=== PATIENT | female | born 1985 | race Two or more races ===

== ENCOUNTER 2021-01-10 08:46 | Outpatient (REF) | payer OTHER, SELFPAY ==
[2021-01-11 21:12] LABS: C. trachomatis RNA TMA NOT DETECTED (NOT DETECTED); N. gonorrhoeae RNA TMA NOT DETECTED (NOT DETECTED)
[2021-01-16 13:31] LABS: HPV mRNA E6/E7 rflx Not Detected (Not Detected)
== END 2021-01-10 08:47 | disposition home or self-care (01) ==
LOC: HO.LAB 08:46
PROVIDERS: PCP Internal Medicine; Visit Provider Advanced Practice Midwife
DX: Z01.419 Encounter for gynecological examination (general) (routine) without abnormal findings (principal); F17.290 Nicotine dependence, other tobacco product, uncomplicated; Z20.2 Contact with and (suspected) exposure to infections with a predominantly sexual mode of transmission
CPT/HCPCS: 36415; 87210; 87491; 87591; 87624; 88142

== ENCOUNTER 2021-03-23 08:57 | Emergency (ER) | payer OTHER, SELFPAY ==
[2021-03-23 09:05] VITALS: BP 105/60; PULSE 88; RESP 14; TEMP 36.5; O2SAT 97; BMI 22.4
--- NOTE | 2021-03-23 09:20 | ED_ITS ---
HPI - Extremity Problem General Chief complaint: Extremity Injury, Upper Stated complaint: R SHOULDER PAIN Time Seen by Provider: 03/23/21 09:16 Source: patient Mode of arrival: ambulatory Limitations: no limitations History of Present Illness HPI Narrative: Patient is a 35-year-old female with no significant past medical history who was moving a bed frame about a week ago and injured her right shoulder. She has not tried taking any medications to make it feel better nor has she used ice. She states is worse when she lifts it over her head. Denies any redness on her shoulder or fevers. Related Data Home Medications Medication Instructions Recorded Confirmed No Known Home Meds 01/10/21 01/10/21 Allergies Allergy/AdvReac Type Severity Reaction Status Date / Time ibuprofen [IBUPROFEN] Allergy Unknown ITCHING, Verified 01/10/21 08:57 RASH Review of Systems Review of Systems: Yes all other systems are reviewed and are negative [facility] Past Medical History Medical History History of asthma Hx of ovarian cyst Surgical History Tubal ligation status Family History Family History Mother Ovarian cancer HTN (hypertension) Social History Social History Alcohol intake: current Alcohol intake frequency: does not drink Smoking Status: Current some day smoker Tobacco Type: Cigar Cigarettes Per Day: 3 Smoked in Last 30 Days: Yes Use of substances other than those prescribed or required for medical reasons: No Advance Directives: No Advance Directives Information Provided: No Gender identity: female Physical Exam Vital Signs: Vital Signs: Last Vital Signs Temp 97.7 F 03/23/21 09:05 Pulse 88 03/23/21 09:05 Resp 14 03/23/21 09:05 BP 105/60 03/23/21 09:05 Pulse Ox 97 03/23/21 09:05 Body Mass Index 22.4 Const: General: cooperative, healthy appearing, comfortable and no acute distress Nutritional Appearance: average body habitus Orientation/consciousness: patient oriented x3 Eyes: General: appearance normal, both eyes and all related structures Neck: Neck: Yes normal visual inspection, Yes full ROM, Yes trachea midline and Yes supple Resp: Effort & Inspection: normal respiratory effort and able to speak in complete sentences Neuro: General: patient oriented x3 Extrem: Right upper extremity: normal to inspection, full ROM (with pain - shoulder) and elbow/forearm Details: normal to inspection and normal ROM; no edema and joint enlargement noted Discharge Plan Discharge Clinical Impression: Strain of shoulder, right Qualifiers: Encounter type: initial encounter Qualified Code(s): S46.911A - Strain of unspecified muscle, fascia and tendon at shoulder and upper arm level, right arm, initial encounter Patient Disposition: Home, Self-Care Instructions: Shoulder Pain (ED) Additional Instructions: As discussed, because the pain is such a localized area, I would purchase an [id number] lidocaine patch applied to the area, you can change it daily. I would also add some naproxen 500 mg twice a day and do not lift anything over 5 lb for the next 2 weeks. You can apply ice if you find that is helpful. It could take a couple of weeks for to feel better but if the pain does not improve over the next couple of weeks, you can follow-up with your PCP or the orthopedic doctor I have listed below. Prescriptions: No Action No Known Home Meds RF: 0 Referrals: Zak Helms MD [Physician] - 2 weeks (if not better, please see PCP or orthopedic doctor listed above)
== END 2021-03-23 09:41 | disposition home or self-care (01) ==
PROVIDERS: Emergency Provider Emergency Medicine; PCP Internal Medicine
DX: S46.911A Strain of unspecified muscle, fascia and tendon at shoulder and upper arm level, right arm, initial encounter (principal); X50.0XXA Overexertion from strenuous movement or load, initial encounter; Y93.E9 Activity, other interior property and clothing maintenance; Y92.019 Unspecified place in single-family (private) house as the place of occurrence of the external cause; Y99.9 Unspecified external cause status; F17.200 Nicotine dependence, unspecified, uncomplicated
CPT/HCPCS: 99282; 99283

== ENCOUNTER 2021-09-20 18:35 | Emergency (ER) | payer OTHER, SELFPAY ==
--- NOTE | ~2021-09-20 | XR_ITS ---
EXAMINATION: XR CHEST CLINICAL INFORMATION: Chest pain. COMPARISON: 11/02/2015. TECHNIQUE: AP view of the chest was obtained. FINDINGS: No significant abnormality is noted involving the heart, lungs, mediastinum, bony thorax or soft tissues. XR/XR chest 1V IMPRESSION: No acute cardiopulmonary findings.
[2021-09-20 18:41] VITALS: BP 122/69; PULSE 73; RESP 18; TEMP 36.8; O2SAT 100; BMI 22.4
--- NOTE | 2021-09-20 18:44 | ECG_ITS ---
Test Reason : CHEST PAIN Blood Pressure : / mmHG Vent. Rate : 069 BPM Atrial Rate : 069 BPM P-R Int : 130 ms QRS Dur : 072 ms QT Int : 378 ms P-R-T Axes : 000 058 044 degrees QTc Int : 405 ms Normal sinus rhythm with sinus arrhythmia Normal ECG No significant changes seen Referred By: Generic ED Physician Electronically Signed By:BRIA EVERETT MD
[2021-09-20 19:06] LABS: MANUAL DIFF FLAG NO
[2021-09-20 19:07] LABS: Basophils Percent Auto 0.7 % (0-2); Eosinophils Absolute Auto 0.4 X10*3/uL (0.0-0.4); Eosinophils Percent Auto 6.5 % (0-4); Hematocrit 34.4 % (37-47); Hemoglobin 11.9 g/dl (12.0-16.0); Imm Gran Abs Auto 0.01 X10*3/uL (0.00-0.03); Imm Gran Pct Auto 0.2 % (0.0-0.4); Lymphocytes Absolute Auto 1.8 X10*3/uL (1.2-4.9); Lymphocytes Percent Auto 34.1 % (20-40); Mean Corpuscular HGB Conc 34.6 g/dl (31.0-35.0); Mean Corpuscular Hemoglobin 30.6 pg (27.0-33.0); Mean Corpuscular Volume 88.4 fL (80-98); Mean Platelet Volume 9.7 fL (9.4-12.3); Monocytes Absolute Auto 0.6 X10*3/uL (0.1-1.2); Neutrophils Absolute Auto 2.5 X10*3/uL (2.0-8.3); Neutrophils Percent Auto 47.5 % (45-73); Platelet Count 263 X10*3/uL (160-400); Red Blood Count 3.89 X10*6/uL (4.20-5.50); Red Cell Distribution Width 12.6 % (11.0-16.0); White Blood Count 5.4 X10*3/uL (4.8-10.8)
[2021-09-20 19:20] LABS: Anion Gap 12 (12-20); Blood Urea Nitrogen 9 mg/dL (9-16); Calcium 8.7 mg/dL (8.4-10.2); Carbon Dioxide 21 mmol/L (22-29); Chloride 108 mmol/L (96-108); Creatinine Clr Calc Pharmacy 102.3; Estimated Glomerular Filt Rate > 60; Glucose Random 85 mg/dL (60-115); Potassium 3.4 mmol/L (3.3-5.1); Sodium 138 mmol/L (135-145)
--- NOTE | 2021-09-20 19:24 | ED_ITS ---
HPI - Chest Pain General Chief Complaint: Chest Pain Stated Complaint: Chest wall pain Time Seen by Provider: 09/20/21 19:24 Source: patient Mode of arrival: ambulatory History of Present Illness HPI narrative: 35-year-old female with past medical history of asthma, cigarette smoker, presenting to the ED complaining of substernal chest pain/pressure worse with deep inspiration/movement x 3-4 days. Denies SOB, LE edema/calf pain, recent travel, history of blood clots, fever, chills, cough, abdominal pain, nausea/vomiting MD complaint: chest heaviness Related Data Previous Rx's Medication Instructions Recorded acetaminophen 500 mg tablet 500 mg PO Q6H PRN #20 tab 09/20/21 (Tylenol Extra Strength) lidocaine 5 % topical patch 1 patch TOPICAL DAILY PRN #30 ea 09/20/21 (Lidoderm) MDD remove after 12 hours Allergies Allergy/AdvReac Type Severity Reaction Status Date / Time ibuprofen [IBUPROFEN] Allergy Unknown ITCHING, Verified 09/20/21 18:41 RASH Review of Systems Review of Systems: Constitutional: No Fever, No Chills, No Fatigue, No Malaise ENT/Mouth: No Ear Pain, No Nasal Congestion, No Sinus Pain, No sore throat, No Rhinorrhea, No Swallowing Difficulty Eyes: No Eye Pain, No Swelling, No Redness, No Discharge Cardiovascular: + Chest Pain, No SOB, No Dyspnea on Exertion, No Orthopnea, No Edema, No Palpitations Respiratory: No Cough, No Dyspnea Gastrointestinal: No Nausea, No Vomiting, No Diarrhea, No Constipation, No Abdominal pain Genitourinary: No Dysuria, No Urinary Frequency, No Hematuria,No Flank Pain Musculoskeletal: No joint pain, No Myalgias, No Joint Swelling Skin: No Skin Lesions, No rash Neuro: No Weakness, No Loss of Consciousness, No Dizziness, No Headache Yes all other systems are reviewed and are negative [facility] Past Medical History Attestation statement: The following information was validated with the patient. Medical History History of asthma Hx of ovarian cyst Surgical History Tubal ligation status Family History Family History Mother Ovarian cancer HTN (hypertension) Social History Social History Alcohol intake: never Patient Tobacco Use Status: Current everyday Tobacco user Cigarettes Per Day: 3 Use of substances other than those prescribed or required for medical reasons: Yes Substance Use Type: Marijuana Advance Directives: No Advance Directives Information Provided: Yes Patient : No Gender identity: Female Physical Exam Vital Signs: Vital Signs: Last Vital Signs Temp 99.0 F 09/20/21 19:42 Pulse 63 09/20/21 19:42 Resp 20 09/20/21 19:42 BP 106/69 09/20/21 19:42 Pulse Ox 99 09/20/21 19:42 Body Mass Index 22.4 Const: General: cooperative, healthy appearing and no acute distress Orientation/consciousness: patient oriented x3 Limitations: no limitations HENMT: Head: Yes normal to inspection Ears: hearing grossly normal bilaterally General nose exam: Normal external nose present Face and sinus: Yes normal facial exam Eyes: General: appearance normal, both eyes and all related structures EOM: EOMs intact bilaterally Neck: Neck: Yes normal visual inspection and Yes no meningeal signs Chest: Chest palpation & inspection: no crepitus and tenderness sternum (Reproducing subjective complaint) Resp: Effort & Inspection: normal respiratory effort Auscultation: clear to auscultation bilaterally, no rales, no rhonchi and no wheezes Cardio: Rate: regular rate Heart sounds: S1 normal heart sound present and S2 normal heart sound present GI: Inspection: Yes normal to inspection Palpation (GI): Soft to palpation, nontender, no guarding and not rigid Skin: Rashes: no rashes Wounds: no wounds Neuro: General: patient oriented x3 and no meningeal signs Gait exam (Neuro): Normal gait present Extrem: General: Yes normal to inspection, Yes no pedal edema and Yes no calf tenderness Course Course Course Narrative: -1928--no leukocytosis. Troponin negative. -2008--D-dimer negative, labs otherwise unremarkable XR chest 1V IMPRESSION: No acute cardiopulmonary findings. >> results discussed with patient including worrisome signs and symptoms and strict return precautions. She verbalized understanding feel safe for discharge home to follow-up with PCP MDM - Chest Pain MDM Narrative Medical decision making narrative: 35-year-old female with past medical history of asthma, cigarette smoker, presenting to the ED complaining of substernal chest pain/pressure worse with deep inspiration/movement x 3-4 days. On exam vital signs stable, NAD, nontoxic appearing, chest pain reproducible on exam, lungs CTA, no pedal edema/calf tenderness. Concern for costochondritis vs PE patient with risk factor of cigarette smoking/pleuritic chest pain vs atypical ACS. Rule out pneumonia. Plan: EKG, labs, CXR, re-evaluate Medical Records Data Attestation: I reviewed the patient's medical records. Lab Data Attestation: I reviewed the patient's lab results. Result diagrams: 09/20/21 19:00 09/20/21 19:00 Labs: Lab Results 09/20/21 09/20/21 09/20/21 Range/Units 19:00 19:00 19:00 WBC 5.4 (4.8-10.8) X10*3/uL RBC 3.89 L (4.20-5.50) X10*6/uL Hgb 11.9 L (12.0-16.0) g/dl Hct 34.4 L (37-47) % MCV 88.4 (80-98) fL MCH 30.6 (27.0-33.0) pg MCHC 34.6 (31.0-35.0) g/dl RDW 12.6 (11.0-16.0) % Plt Count 263 (160-400) X10*3/uL MPV 9.7 (9.4-12.3) fL Immature Gran % (Auto) 0.2 (0.0-0.4) % Neut % (Auto) 47.5 (45-73) % Lymph % (Auto) 34.1 (20-40) % [place] % (Auto) 11.0 (2-11) % Eos % (Auto) 6.5 H (0-4) % Baso % (Auto) 0.7 (0-2) % Lymph # (Auto) 1.8 (1.2-4.9) X10*3/uL [place] # (Auto) 0.6 (0.1-1.2) X10*3/uL Eos # (Auto) 0.4 (0.0-0.4) X10*3/uL Baso # (Auto) 0.0 (0.0-0.2) X10*3/uL Abs Immat Gran (auto) 0.01 (0.00-0.03) X10*3/uL Absolute Neuts (auto) 2.5 (2.0-8.3) X10*3/uL Absolute Nucleated RBC 0.000 (0.0-0.012) X10*3/uL Nucleated RBC % (auto) 0.0 (0.0-0.2) /100WBC D-Dimer NG/ML Sodium 138 (135-145) mmol/L Potassium 3.4 (3.3-5.1) mmol/L Chloride 108 (96-108) mmol/L Carbon Dioxide 21 L (22-29) mmol/L Anion Gap 12 (12-20) BUN 9 (9-16) mg/dL Creatinine 0.69 (0.5-1.4) mg/dL Estim Creat Clear Calc 102.3 Estimated GFR > 60 Random Glucose 85 (60-115) mg/dL Calcium 8.7 (8.4-10.2) mg/dL Troponin I High Sens < 3.5 (<3.5-17.0) ng/L 09/20/21 Range/Units 19:51 WBC (4.8-10.8) X10*3/uL RBC (4.20-5.50) X10*6/uL Hgb (12.0-16.0) g/dl Hct (37-47) % MCV (80-98) fL MCH (27.0-33.0) pg MCHC (31.0-35.0) g/dl RDW (11.0-16.0) % Plt Count (160-400) X10*3/uL MPV (9.4-12.3) fL Immature Gran % (Auto) (0.0-0.4) % Neut % (Auto) (45-73) % Lymph % (Auto) (20-40) % [place] % (Auto) (2-11) % Eos % (Auto) (0-4) % Baso % (Auto) (0-2) % Lymph # (Auto) (1.2-4.9) X10*3/uL [place] # (Auto) (0.1-1.2) X10*3/uL Eos # (Auto) (0.0-0.4) X10*3/uL Baso # (Auto) (0.0-0.2) X10*3/uL Abs Immat Gran (auto) (0.00-0.03) X10*3/uL Absolute Neuts (auto) (2.0-8.3) X10*3/uL Absolute Nucleated RBC (0.0-0.012) X10*3/uL Nucleated RBC % (auto) (0.0-0.2) /100WBC D-Dimer 202 NG/ML Sodium (135-145) mmol/L Potassium (3.3-5.1) mmol/L Chloride (96-108) mmol/L Carbon Dioxide (22-29) mmol/L Anion Gap (12-20) BUN (9-16) mg/dL Creatinine (0.5-1.4) mg/dL Estim Creat Clear Calc Estimated GFR Random Glucose (60-115) mg/dL Calcium (8.4-10.2) mg/dL Troponin I High Sens (<3.5-17.0) ng/L ECG Data ECG #1: ECG interpretation date: 09/20/21 ECG interpretation time: 18:54 Interpretation: EKG normal sinus rhythm at a rate of 69 OK interval 139 QRS 72 QTC 405 No STEMI/nonischemic Discharge Plan Discharge Clinical Impression: Acute costochondritis Patient Disposition: Home, Self-Care Instructions: Costochondritis (ED) Additional Instructions: Your blood work and chest x-ray were reassuring today in the ED Please follow-up with her primary care doctor Apply heat to area Rest Take Tylenol as needed for pain, Lidoderm patches additionally help for pain If symptoms persist or worsen/become unbearable or you have shortness of breath or fever return to the ED Prescriptions: New acetaminophen [Tylenol Extra Strength] 500 mg tablet 500 mg PO Q6H PRN (Reason: pain or fever) Qty: 20 RF: 0 lidocaine [Lidoderm] 5 % adhesive patch,medicated 1 patch topical DAILY MDD remove after 12 hours PRN (Reason: pain) Qty: 30 RF: 0 Referrals: Kimberly Parekh MD [Primary Care Provider] - 5 days
[2021-09-20 19:26] LABS: Troponin-I High Sensitivity < 3.5 ng/L (<3.5-17.0)
[2021-09-20 19:42] VITALS: BP 106/69; PULSE 63; RESP 20; TEMP 37.2; O2SAT 99
--- NOTE | 2021-09-20 19:43 | PC.NURSE ---
PATIENT WAS HOOKED UP TO FRONT COUNTER CLERK AND VITALS WERE TAKEN .
[2021-09-20] MEDS: Acetaminophen 325 MG TABLET 650 MG PO (19:51)
[2021-09-20 20:05] LABS: D Dimer 202 NG/ML
== END 2021-09-20 20:26 | disposition home or self-care (01) ==
PROVIDERS: Physician Assistant; Emergency Provider Internal Medicine; PCP Internal Medicine
DX: M94.0 Chondrocostal junction syndrome [Tietze] (principal); F17.200 Nicotine dependence, unspecified, uncomplicated
CPT/HCPCS: 36415; 71045; 80048; 84484; 85025; 85379; 93005; 99284

== ENCOUNTER 2021-09-22 02:32 | Emergency (ER) | payer OTHER, SELFPAY ==
--- NOTE | 2021-09-22 | ECG_ITS ---
Test Reason : CHEST PAIN Blood Pressure : / mmHG Vent. Rate : 067 BPM Atrial Rate : 067 BPM P-R Int : 146 ms QRS Dur : 070 ms QT Int : 376 ms P-R-T Axes : 047 063 054 degrees QTc Int : 397 ms Normal sinus rhythm Nonspecific T wave abnormality Abnormal ECG No significant changes seen Referred By: Generic ED Physician Electronically Signed By:BRIA EVERETT MD
--- NOTE | ~2021-09-22 | XR_ITS ---
EXAMINATION: XR CHEST CLINICAL INFORMATION: Right rib pain COMPARISON: 09/20/2021 TECHNIQUE: 2 views of the chest were obtained. FINDINGS: The lungs are clear with no focal consolidation. No evidence of pneumothorax, pulmonary edema, or pleural effusions. The cardiomediastinal silhouette is unremarkable. No acute osseous findings. XR/XR chest 2V IMPRESSION: No acute cardiopulmonary findings.
--- NOTE | ~2021-09-22 | CT_ITS ---
EXAMINATION: CT ABDOMEN AND PELVIS WITHOUT CONTRAST CLINICAL INFORMATION: Right flank pain COMPARISON: Previous CT of the abdomen and pelvis June 2020 TECHNIQUE: Multidetector volumetric imaging was performed from the superior aspect of the liver through the pubic symphysis. Sagittal and coronal reformatted images were obtained on the technologist's workstation. This CT examination was performed using dose optimization techniques as appropriate, variously including the following: *Automated exposure control *Adjustment of mA and/or kV according to patient size (this includes techniques or standardized protocols for targeted exams where dose is matched to indication/reason for exam; i.e. extremities or head) *Use of iterative reconstruction technique DLP: 434 mGy-cm FINDINGS: LUNG BASES: The visualized lung bases are unremarkable. LIVER, GALLBLADDER, AND BILIARY TREE: The liver is normal in size, shape, and attenuation. No focal hepatic lesion or biliary ductal dilatation is present. The gallbladder is unremarkable with no evidence of radiopaque gallstones, gallbladder wall thickening, or obvious pericholecystic inflammatory changes. PANCREAS: Unremarkable. SPLEEN: Unremarkable. ADRENAL GLANDS: Unremarkable. KIDNEYS AND URETERS: The kidneys are normal in size, shape, and attenuation. No hydronephrosis, hydroureter, or calculi seen. No perinephric stranding. BLADDER: Unremarkable. GASTROINTESTINAL TRACT: The small and large bowel are unremarkable. The appendix is not identified. There are no inflammatory changes seen in the right lower quadrant. ABDOMINAL WALL: No significant hernia is appreciated. LYMPH NODES: Normal. VASCULAR: Unremarkable. PELVIC VISCERA: Unremarkable. OSSEOUS STRUCTURES: Unremarkable. CT/CT abdomen pelvis wo con IMPRESSION: Unremarkable exam
[2021-09-22 03:01] VITALS: BP 121/76; PULSE 75; RESP 20; TEMP 36.7; O2SAT 99; BMI 24.1
--- NOTE | 2021-09-22 05:27 | PC.NURSE ---
Pt and visitor at bedside endorsing frustration re: wait time. This RN offered to discuss PRN pain meds w/ MD while pt awaiting eval. Pt amicable but states that when seen the other day for these same complaints she was given tylenol and lidocaine patches w/o relief. Information relayed to MD Obrien
[2021-09-22 06:00] VITALS: BP 93/35; PULSE 56; RESP 16; TEMP 37.1; O2SAT 98
[2021-09-22] MEDS: HYDROcodone Bit/Acetam 5/325 TABLET 1 TAB PO (06:41)
[2021-09-22] MEDS: Ondansetron ODT 4 MG TAB.RAPDIS TRANSLINGU (06:41)
[2021-09-22] MEDS: Cyclobenzaprine HCl 10 MG TABLET PO (06:41)
--- NOTE | 2021-09-22 06:42 | ED.ABDPAIN ---
HPI - Abdominal Pain General Chief Complaint: General Medical Stated Complaint: rib pain Time Seen by Provider: 09/22/21 06:30 Source: patient and old records reviewed Mode of arrival: ambulatory Limitations: no limitations History of Present Illness MD elicited complaint: flank pain Pertinent past history: none Onset (ago): day(s) (3) Pain Consistency: constant Location: R flank Severity: severe Quality: stabbing Radiation: none Migration to: no migration Exacerbating factors: movement Relieving factors: nothing Treatments prior to arrival: other Related Data Previous Rx's Medication Instructions Recorded acetaminophen 500 mg tablet 500 mg PO Q6H PRN #20 tab 09/20/21 (Tylenol Extra Strength) lidocaine 5 % topical patch 1 patch TOPICAL DAILY PRN #30 ea 09/20/21 (Lidoderm) MDD remove after 12 hours diazepam 5 mg tablet (Valium) 5 mg PO TID PRN #10 tab 09/22/21 lidocaine 4 % topical patch 1 patch TOPICAL DAILY PRN #10 ea 09/22/21 Allergies Allergy/AdvReac Type Severity Reaction Status Date / Time ibuprofen [IBUPROFEN] Allergy Unknown ITCHING, Verified 09/20/21 18:41 RASH Review of Systems Review of Systems Constitutional : No Weight loss, No Fever, No Chills, ENT/Mouth : No Hearing loss, No Ear Pain, No Nasal Congestion, No Sinus Pain, No Hoarseness, No sore throat, No Rhinorrhea, No Swallowing Difficulty Cardiovascular : No Chest Pain, No SOB Respiratory : No Cough, No Dyspnea Gastrointestinal : No Nausea, No Vomiting, No Diarrhea, No abdominal Pain, No Hematochezia, No Melena Genitourinary : No Dysuria, No Urinary Frequency, No Hematuria, No Urinary Incontinence, Musculoskeletal : positive back pain, pos chest wall pain Skin : No Skin Lesions, No rash Neuro : No Weakness, No Numbness, No Paresthesias, no loss of bowel or bladder incontinence, no saddle anesthesia All other systems reviewed and are negative Physical Exam Vital Signs: Vital Signs: Last Vital Signs Temp 98.7 F 09/22/21 06:00 Pulse 56 09/22/21 06:00 Resp 16 09/22/21 06:00 BP 111/73 09/22/21 06:43 Pulse Ox 98 09/22/21 06:00 Body Mass Index 24.1 Appearance: Alert. Oriented X3. No acute distress. Eyes: Pupils equal, round and reactive to light. ENT: Pharynx normal. Neck: Normal inspection. Neck supple. CVS: Normal heart rate and rhythm. Pulses normal. Respiratory: No respiratory distress. Breath sounds normal. Abdomen: Soft and ttp in R mid abdomen area Back: moderate R flank ttp Skin: Skin warm and dry. Normal skin color. Normal skin turgor. Extremities: No lower extremity edema. No calf ttp Neuro: Oriented X 3. No motor deficit. No sensory deficit. Course Course Course Narrative: negative workup stable for DC MDM - Abdominal Pain MDM Narrative Medical decision making narrative: 35 yo female here with R flank pain for 3 days possibly MSK seems worse with movement but will need renal colic workup as well. Just seen for chest pain 2 days ago ruled out with ddimer and troponin - EKG today unchanged, atypical for ACS, PERC negative, her DBP is low on arrival will hydrate. Labs, UA, CT scan for renal colic. Dispo per results and findings. Lab Data Result diagrams: 09/22/21 06:46 09/22/21 06:46 Labs: Lab Results 09/22/21 09/22/21 09/22/21 Range/Units 06:46 06:46 06:46 WBC 5.5 (4.8-10.8) X10*3/uL RBC 3.99 L (4.20-5.50) X10*6/uL Hgb 12.2 (12.0-16.0) g/dl Hct 35.5 L (37-47) % MCV 89.0 (80-98) fL MCH 30.6 (27.0-33.0) pg MCHC 34.4 (31.0-35.0) g/dl RDW 12.5 (11.0-16.0) % Plt Count 295 (160-400) X10*3/uL MPV 9.9 (9.4-12.3) fL Immature Gran % (Auto) 0.2 (0.0-0.4) % Neut % (Auto) 58.3 (45-73) % Lymph % (Auto) 24.5 (20-40) % [place] % (Auto) 10.6 (2-11) % Eos % (Auto) 5.7 H (0-4) % Baso % (Auto) 0.7 (0-2) % Lymph # (Auto) 1.3 (1.2-4.9) X10*3/uL [place] # (Auto) 0.6 (0.1-1.2) X10*3/uL Eos # (Auto) 0.3 (0.0-0.4) X10*3/uL Baso # (Auto) 0.0 (0.0-0.2) X10*3/uL Abs Immat Gran (auto) 0.01 (0.00-0.03) X10*3/uL Absolute Neuts (auto) 3.2 (2.0-8.3) X10*3/uL Absolute Nucleated RBC 0.000 (0.0-0.012) X10*3/uL Nucleated RBC % (auto) 0.0 (0.0-0.2) /100WBC Sodium 138 (135-145) mmol/L Potassium 3.7 (3.3-5.1) mmol/L Chloride 106 (96-108) mmol/L Carbon Dioxide 24 (22-29) mmol/L Anion Gap 12 (12-20) BUN 12 (9-16) mg/dL Creatinine 0.72 (0.5-1.4) mg/dL Estim Creat Clear Calc 98.1 Estimated GFR > 60 Random Glucose 106 (60-115) mg/dL Calcium 8.9 (8.4-10.2) mg/dL Total Bilirubin 0.3 (0.0-1.0) mg/dL Direct Bilirubin < 0.2 (0.0-0.5) mg/dL AST 11 (5-31) U/L ALT 9 (0-31) U/L Alkaline Phosphatase 46 (39-117) U/L Total Protein 6.9 (6.5-8.0) g/dL Albumin 4.2 (3.5-5.0) g/dL Lipase 16 (8-78) U/L Urine Color Urine Appearance Urine pH (5.0-8.0) Ur Specific [place] (1.005-1.025) Urine Protein (NEG-TRACE) MG/DL Urine Glucose (UA) (NEG) MG/DL Urine Ketones (NEG) MG/DL Urine Blood (NEG) Urine Nitrite (NEG) Ur Leukocyte Esterase (NEG) Urine RBC (0) /HPF Urine WBC (0-4) /HPF Ur Squamous Epith Cells /LPF Urine Bacteria /LPF Urine Mucus /LPF Urine Test (NEGATIVE) COVID-19 (FABRICIO) Negative (Negative) COVID-19 Clin Com See Note 09/22/21 09/22/21 Range/Units 07:51 07:51 WBC (4.8-10.8) X10*3/uL RBC (4.20-5.50) X10*6/uL Hgb (12.0-16.0) g/dl Hct (37-47) % MCV (80-98) fL MCH (27.0-33.0) pg MCHC (31.0-35.0) g/dl RDW (11.0-16.0) % Plt Count (160-400) X10*3/uL MPV (9.4-12.3) fL Immature Gran % (Auto) (0.0-0.4) % Neut % (Auto) (45-73) % Lymph % (Auto) (20-40) % [place] % (Auto) (2-11) % Eos % (Auto) (0-4) % Baso % (Auto) (0-2) % Lymph # (Auto) (1.2-4.9) X10*3/uL [place] # (Auto) (0.1-1.2) X10*3/uL Eos # (Auto) (0.0-0.4) X10*3/uL Baso # (Auto) (0.0-0.2) X10*3/uL Abs Immat Gran (auto) (0.00-0.03) X10*3/uL Absolute Neuts (auto) (2.0-8.3) X10*3/uL Absolute Nucleated RBC (0.0-0.012) X10*3/uL Nucleated RBC % (auto) (0.0-0.2) /100WBC Sodium (135-145) mmol/L Potassium (3.3-5.1) mmol/L Chloride (96-108) mmol/L Carbon Dioxide (22-29) mmol/L Anion Gap (12-20) BUN (9-16) mg/dL Creatinine (0.5-1.4) mg/dL Estim Creat Clear Calc Estimated GFR Random Glucose (60-115) mg/dL Calcium (8.4-10.2) mg/dL Total Bilirubin (0.0-1.0) mg/dL Direct Bilirubin (0.0-0.5) mg/dL AST (5-31) U/L ALT (0-31) U/L Alkaline Phosphatase (39-117) U/L Total Protein (6.5-8.0) g/dL Albumin (3.5-5.0) g/dL Lipase (8-78) U/L Urine Color YELLOW Urine Appearance CLEAR Urine pH 6.0 (5.0-8.0) Ur Specific [place] >= 1.030 H (1.005-1.025) Urine Protein TRACE (NEG-TRACE) MG/DL Urine Glucose (UA) NEG (NEG) MG/DL Urine Ketones NEG (NEG) MG/DL Urine Blood 3+ H (NEG) Urine Nitrite NEG (NEG) Ur Leukocyte Esterase NEG (NEG) Urine RBC 10-14 H (0) /HPF Urine WBC 0 (0-4) /HPF Ur Squamous Epith Cells NONE /LPF Urine Bacteria NONE /LPF Urine Mucus TRACE /LPF Urine Test NEGATIVE (NEGATIVE) COVID-19 (FABRICIO) (Negative) COVID-19 Clin Com ECG Data Attestation: I personally reviewed and interpreted this ECG as follows: ECG interpretation date: 09/22/21 ECG interpretation time: 06:43 Interpretation: Rate: 67 Rhythm: NSR [place]: normal Normal P waves. Normal NATI. Normal QRS complex. ST T wave : no FELA, inverted V1-V2 qTC: normal prior studies: no change from prior The study has been interpreted contemporaneously by me. . Discharge Plan Discharge Clinical Impression: Acute flank pain Patient Disposition: Home, Self-Care Instructions: Flank Pain (ED) Additional Instructions: return to ED for any worsening symptoms or concerns negative CT scan for stone Prescriptions: New lidocaine 4 % adhesive patch,medicated 1 patch topical DAILY PRN (Reason: pain) Qty: 10 RF: 0 diazepam [Valium] 5 mg tablet 5 mg PO TID PRN (Reason: muscle spasm) Qty: 10 RF: 0 No Action acetaminophen [Tylenol Extra Strength] 500 mg tablet 500 mg PO Q6H PRN (Reason: pain or fever) Qty: 20 RF: 0 lidocaine [Lidoderm] 5 % adhesive patch,medicated 1 patch topical DAILY MDD remove after 12 hours PRN (Reason: pain) Qty: 30 RF: 0 Referrals: Po,Loki Valentine MD [Primary Care Provider] - 2 days (if not better) Stand Alone Forms: Work/School Release [facility] Past Medical History Attestation statement: The following information was validated with the patient. Medical History History of asthma Hx of ovarian cyst Surgical History Tubal ligation status Family History Family History Mother Ovarian cancer HTN (hypertension) Social History Social History Alcohol intake: never Patient Tobacco Use Status: Current everyday Tobacco user Cigarettes Per Day: 3 Substance Use Type: Marijuana Advance Directives: No Advance Directives Information Provided: Yes Patient : No Gender identity: Female
[2021-09-22 06:43] VITALS: BP 111/73
[2021-09-22] MEDS: 0.9 % Sodium Chloride 1,000 ML 999 ML IVCONT ×2 (06:52→07:52)
[2021-09-22 07:01] LABS: MANUAL DIFF FLAG NO
[2021-09-22 07:06] LABS: Basophils Percent Auto 0.7 % (0-2); Eosinophils Absolute Auto 0.3 X10*3/uL (0.0-0.4); Eosinophils Percent Auto 5.7 % (0-4); Hematocrit 35.5 % (37-47); Hemoglobin 12.2 g/dl (12.0-16.0); Imm Gran Abs Auto 0.01 X10*3/uL (0.00-0.03); Imm Gran Pct Auto 0.2 % (0.0-0.4); Lymphocytes Absolute Auto 1.3 X10*3/uL (1.2-4.9); Lymphocytes Percent Auto 24.5 % (20-40); Mean Corpuscular HGB Conc 34.4 g/dl (31.0-35.0); Mean Corpuscular Hemoglobin 30.6 pg (27.0-33.0); Mean Platelet Volume 9.9 fL (9.4-12.3); Monocytes Absolute Auto 0.6 X10*3/uL (0.1-1.2); Monocytes Percent Auto 10.6 % (2-11); Neutrophils Absolute Auto 3.2 X10*3/uL (2.0-8.3); Neutrophils Percent Auto 58.3 % (45-73); Platelet Count 295 X10*3/uL (160-400); Red Blood Count 3.99 X10*6/uL (4.20-5.50); Red Cell Distribution Width 12.5 % (11.0-16.0); White Blood Count 5.5 X10*3/uL (4.8-10.8)
[2021-09-22 07:07] LABS: COVID-19 Test Negative (Negative)
[2021-09-22 07:24] LABS: Alanine Aminotransferase 9 U/L (0-31); Albumin Level 4.2 g/dL (3.5-5.0); Alkaline Phosphatase 46 U/L (39-117); Anion Gap 12 (12-20); Aspartate Amino Transferase 11 U/L (5-31); Bilirubin Direct < 0.2 mg/dL (0.0-0.5); Bilirubin Total 0.3 mg/dL (0.0-1.0); Blood Urea Nitrogen 12 mg/dL (9-16); Calcium 8.9 mg/dL (8.4-10.2); Carbon Dioxide 24 mmol/L (22-29); Chloride 106 mmol/L (96-108); Creatinine Clr Calc Pharmacy 98.1; Estimated Glomerular Filt Rate > 60; Glucose Random 106 mg/dL (60-115); Lipase 16 U/L (8-78); Potassium 3.7 mmol/L (3.3-5.1); Sodium 138 mmol/L (135-145); Total Protein 6.9 g/dL (6.5-8.0)
[2021-09-22 07:59] LABS: Appearance Urine CLEAR; Color Urine YELLOW; Glucose Urine UA NEG (NEG); Leukocyte Esterase Urine NEG (NEG); Nitrite Urine NEG (NEG); Specific Gravity - Urine >= 1.030 (1.005-1.025); UACC Culture Trigger NO; Urine Blood 3+ (NEG); Urine Ketones NEG (NEG); Urine Protein TRACE MG/DL (NEG-TRACE)
[2021-09-22 08:00] LABS: UPreg QC Valid YES; Urine Pregnancy NEGATIVE (NEGATIVE)
[2021-09-22 08:23] LABS: Mucus Urine TRACE /LPF; WBC Urine 0 /HPF (0-4)
== END 2021-09-22 09:01 | disposition home or self-care (01) ==
PROVIDERS: Emergency Provider Emergency Medicine; PCP Internal Medicine
DX: R07.81 Pleurodynia (principal); Z79.899 Other long term (current) drug therapy; Z20.822 Contact with and (suspected) exposure to COVID-19
CPT/HCPCS: 36415; 71046; 74176; 80048; 80076; 81001; 81025; 83690; 85025; 87635; 93005; 96360; 99284; 99285

== ENCOUNTER 2021-09-25 12:01 | Emergency (ER) | payer OTHER, SELFPAY ==
[2021-09-25 12:04] VITALS: BP 117/64; PULSE 88; RESP 16; TEMP 37; O2SAT 99; BMI 21.6
--- NOTE | 2021-09-25 12:36 | ED_ITS ---
HPI - General Adult General Chief complaint: General Medical Stated complaint: back, abd , chest pain Time Seen by Provider: 09/25/21 12:17 Source: patient and old records reviewed History of Present Illness HPI narrative: Patient complaining of chest and back pain which started approximately 5 days ago. It initially started his anterior chest pain across her entire chest. She was seen in the emergency department at that time and had cardiac workup in a [facility] which were normal. She is treated for costochondritis with Valium in acetaminophen. She states the pain got worse and eventually radiated to her back and into her abdomen. She was seen here 2 days ago when that happened and had a workup including abdominal CT which was negative for pathology. Her lab work also has been normal. She returns today because the pain is still severe. She states it is sharp and burning across her chest into her back bilaterally. It is equal bilaterally. It also has known her epigastric area for the past 2 days. She has not taken other medications for this. She has not taken nonsteroidal anti-inflammatories or antacids. No history of gastritis. She denies history of this in the past. No recent illness. No cough or shortness of breath. No sputum. No fevers or chills documented. Although she thought she had low-grade fevers over the past 2 days. Pain is much worse with movement. It is also worse when she lays flat. No precipitating factors that she can think of. No recent changes in diet or activity. Related Data Previous Rx's Medication Instructions Recorded acetaminophen 500 mg tablet 500 mg PO Q6H PRN #20 tab 09/20/21 (Tylenol Extra Strength) lidocaine 5 % topical patch 1 patch TOPICAL DAILY PRN #30 ea 09/20/21 (Lidoderm) MDD remove after 12 hours diazepam 5 mg tablet (Valium) 5 mg PO TID PRN #10 tab 09/22/21 lidocaine 4 % topical patch 1 patch TOPICAL DAILY PRN #10 ea 09/22/21 naproxen 500 mg tablet,delayed 500 mg PO BID PRN #20 tab 09/25/21 release (EC-Naprosyn) omeprazole magnesium 20 mg 20 mg PO BID #30 tab 09/25/21 tablet,delayed release (Prilosec OTC) Allergies Allergy/AdvReac Type Severity Reaction Status Date / Time ibuprofen [IBUPROFEN] Allergy Unknown ITCHING, Verified 09/20/21 18:41 RASH Review of Systems Constitutional: Comments: No documented fevers Cardiovascular: Comments: Chest pain as described Respiratory: Comments: No cough or dyspnea Gastrointestinal: Comments: Abdominal pain is described Musculoskeletal: Comments: No leg pain or calf pain Integumentary/Breasts: Comments: No rash Neurologic: Comments: No weakness numbness or paresthesias Psychiatric: Comments: Anxiety over the pain PMFSH Past Medical History Medical History History of asthma Hx of ovarian cyst Surgical History Tubal ligation status Family History Family History Mother Ovarian cancer HTN (hypertension) Social History Social History Alcohol intake: never Patient Tobacco Use Status: Current everyday Tobacco user Cigarettes Per Day: 3 Substance Use Type: Marijuana Advance Directives: No Patient : No Gender identity: Female Physical Exam Vital Signs: Vital Signs: Last Vital Signs Temp 98.6 F 09/25/21 12:04 Pulse 88 09/25/21 12:04 Resp 16 09/25/21 12:04 BP 117/64 09/25/21 12:04 Pulse Ox 99 09/25/21 12:04 Body Mass Index 21.6 Const: Other: Awake and alert. Tearful. HENMT: Other: Normocephalic atraumatic. No JVD. Chest: Other: Tender across the anterior chest which reproduces her symptoms. No focal point tenderness. No crepitus or deformity. Resp: Other: Clear and equal bilaterally without wheezes rales rhonchi. Good air entry. No apparent shortness of breath Cardio: Other: Regular rate rhythm without murmurs rubs or gallops GI: Other: Epigastric tenderness to palpation. No Lujan sign. No lower abdominal tenderness. Abdomen is soft and nondistended Back/Spine/Pelvis: Other: No midline CT or L-spine tenderness. There is bilateral tenderness over the rhomboid and trapezius muscles. Skin: Other: Warm pink and dry without rash Neuro: Other: No focal neurologic deficits. Cranial nerves intact grossly Extrem: Other: No calf tenderness or pedal edema Psych: Other: Anxious and tearful Course Course Course Narrative: Patient with chest and back pain and upper abdominal pain with recent very reassuring workup which is ruled out cardiac etiology, thromboembolic etiology, or significant intra-abdominal pathology or kidney stones. At this point exam as well as history and workup consistent with musculoskeletal pain. There may also be a complicating gastritis component. Ideally nonsteroidal anti-inflammatories for the musculoskeletal component but I do not necessarily want to exacerbate the possible gastritis. Will therefore treat with both antacids and anti-inflammatory medication. GI cocktail ordered Toradol IM ordered. 1:42 p.m.. Patient states she is feeling considerably better. She still has pain but is improved from arrival. The GI cocktail helped her epigastric pain. Her back and chest pain is improved mildly as well. Will therefore treat with both anti-inflammatories as well as hand acid medication. Final diagnosis musculoskeletal chest and back pain with secondary diagnosis of gastritis Discharge Plan Discharge Clinical Impression: Acute chest wall pain Gastritis Qualifiers: Gastritis type: unspecified gastritis Chronicity: acute Gastritis bleeding: without bleeding Qualified Code(s): K29.00 - Acute gastritis without bleeding Patient Disposition: Home, Self-Care Instructions: Gastritis (ED), Chest Wall Pain (ED) Additional Instructions: Continue to take previously prescribed medications including diazepam, acetaminophen, and Lidoderm patch. Will also add Naprosyn, prescription strength for your chest and back, and Prilosec for your stomach Prescriptions: New naproxen [EC-Naprosyn] 500 mg tablet,delayed release (DR/EC) 500 mg PO BID PRN (Reason: pain) Qty: 20 RF: 0 omeprazole magnesium [Prilosec OTC] 20 mg tablet,delayed release (DR/EC) 20 mg PO BID Qty: 30 RF: 0 No Action acetaminophen [Tylenol Extra Strength] 500 mg tablet 500 mg PO Q6H PRN (Reason: pain or fever) Qty: 20 RF: 0 lidocaine [Lidoderm] 5 % adhesive patch,medicated 1 patch topical DAILY MDD remove after 12 hours PRN (Reason: pain) Qty: 30 RF: 0 lidocaine 4 % adhesive patch,medicated 1 patch topical DAILY PRN (Reason: pain) Qty: 10 RF: 0 diazepam [Valium] 5 mg tablet 5 mg PO TID PRN (Reason: muscle spasm) Qty: 10 RF: 0
[2021-09-25] MEDS: Ketorolac Tromethamine 15 MG/ML VIAL 30 MG IM (12:50)
[2021-09-25] MEDS: Lidocaine HCl Viscous 2 % 15 ML SOLUTION MUCOUS MEM (12:50)
[2021-09-25] MEDS: Magnesium Hydrox/Alum Hydrox 30 ML ORAL.SUSP PO (12:50)
== END 2021-09-25 13:54 | disposition home or self-care (01) ==
PROVIDERS: Emergency Provider Emergency Medicine; PCP Internal Medicine
DX: R07.9 Chest pain, unspecified (principal); K29.00 Acute gastritis without bleeding; F17.210 Nicotine dependence, cigarettes, uncomplicated; Z71.6 Tobacco abuse counseling; F12.90 Cannabis use, unspecified, uncomplicated; Z79.899 Other long term (current) drug therapy
CPT/HCPCS: 96372; 99283; 99284; J1885

== ENCOUNTER 2021-10-28 08:59 | Emergency (ER) | payer OTHER, SELFPAY ==
--- NOTE | ~2021-10-28 | XR_ITS ---
EXAMINATION: XR LUMBOSACRAL SPINE CLINICAL INFORMATION: Atraumatic left hip and back pain radiating to left leg. COMPARISON: CT abdomen and pelvis 09/22/2021 TECHNIQUE: Three views of the lumbosacral spine. FINDINGS: The vertebral bodies and posterior elements are intact. There is L5-S1 facet arthropathy which may result in some degree of L5-S1 neural foraminal narrowing, though this could be projectional. The disc spaces are preserved and the vertebral alignment is normal. The paraspinal soft tissues are normal. XR/XR lumbar spine 2-3V IMPRESSION: Possible L5-S1 facet arthropathy and mild foraminal narrowing, though this could be projectional. There is no acute fracture or traumatic malalignment.
--- NOTE | ~2021-10-28 | XR_ITS ---
EXAMINATION: XR HIP, LEFT CLINICAL INFORMATION: Atraumatic left hip and back pain radiating to left leg. COMPARISON: CT abdomen and pelvis 09/22/2021 TECHNIQUE: Three views of the left hip. FINDINGS: Bones and soft tissues are normal. There are phleboliths in the left hemipelvis and possible bilateral tubal ligation clips No fracture. Alignment is anatomic. Hip joint space is maintained. XR/XR hip LT w PEL1V IMPRESSION: No acute abnormality of the left hip.
[2021-10-28 10:46] VITALS: BP 92/50; PULSE 62; RESP 16; TEMP 36.8; O2SAT 99; BMI 22.4
--- NOTE | 2021-10-28 11:07 | ED.BACK ---
HPI - Back Pain/Injury General Chief Complaint: Back Pain/Injury Stated Complaint: lower back pain Time Seen by Provider: 10/28/21 10:41 Source: patient Mode of arrival: ambulatory Limitations: no limitations History of Present Illness HPI Narrative: 35-year-old female with a past medical history of asthma, cigarette smoker presenting to the ED with complaints of atraumatic lower back pain/ left hip pain radiating to her left leg with associated intermittent tingling into the left leg over the past week worse today. Reports that she has been seen here in the past for similar complaint and they always tell her that everything is normal. She denies any fevers, chills, dizziness, headaches, neck pain / stiffness, neck injury, chest pain or shortness of breath, abdominal pain, dysuria, hematuria, abnormal vaginal discharge, diarrhea or constipation, nausea/ vomiting, rashes, recent travel or sick contacts, saddle anesthesia, urinary / bowel incontinence or retention, weakness, history of IV drug use or any other symptoms complaints or concerns at this time. MD elicited complaint: back pain Pertinent past history: prior back pain Onset (ago): week(s) (1) Timing: constant and progressively worsening Severity: severe Pain scale (0-10): 10 Similar Symptoms Previously: Yes Quality: sharp and aching Location: lumbar spine and left lower back ( /Left hip) Radiation: left upper leg and left leg below the knee Exacerbating factors: movement and walking Relieving factors: none Context: unknown Associated symptoms: other ( tingling to the left lower extremity intermittently) Treatments prior to arrival: other ( she has tried [id number] medication no symptomatic) Work related injury: No Related Data Previous Rx's Medication Instructions Recorded acetaminophen 500 mg tablet 500 mg PO Q6H PRN #20 tab 09/20/21 (Tylenol Extra Strength) lidocaine 5 % topical patch 1 patch TOPICAL DAILY PRN #30 ea 09/20/21 (Lidoderm) MDD remove after 12 hours diazepam 5 mg tablet (Valium) 5 mg PO TID PRN #10 tab 09/22/21 lidocaine 4 % topical patch 1 patch TOPICAL DAILY PRN #10 ea 09/22/21 naproxen 500 mg tablet,delayed 500 mg PO BID PRN #20 tab 09/25/21 release (EC-Naprosyn) omeprazole magnesium 20 mg 20 mg PO BID #30 tab 09/25/21 tablet,delayed release (Prilosec OTC) baclofen 10 mg tablet 10 mg PO TID PRN #12 tab 09/27/21 diazepam 10 mg tablet (Valium) 10 mg PO TID PRN #10 tab 10/28/21 lidocaine 5 % topical patch 1 patch TOPICAL DAILY #15 ea 10/28/21 (Lidoderm) oxycodone 5 mg tablet 5 mg PO Q6H PRN #14 tab 10/28/21 prednisone 20 mg tablet 40 mg PO DAILY 5 Days #10 tab 10/28/21 Allergies Allergy/AdvReac Type Severity Reaction Status Date / Time ibuprofen [IBUPROFEN] Allergy Unknown ITCHING, Verified 09/27/21 16:21 RASH Review of Systems Review of Systems: Constitutional : No trauma, No Weight loss, No Fever, No Chills, ENT/Mouth : No Hearing loss, No Ear Pain, No Nasal Congestion, No Sinus Pain, No Hoarseness, No sore throat, No Rhinorrhea, No Swallowing Difficulty Cardiovascular : No Chest Pain, No SOB Respiratory : No Cough, No Dyspnea Gastrointestinal : No Nausea, No Vomiting, No Diarrhea, No abdominal Pain, No Hematochezia, No Melena Genitourinary : No Dysuria, No Urinary Frequency, No Hematuria, No Urinary or Bowel Incontinence/retention Musculoskeletal : + Back pain, No neck pain, No joint stiffness, No joint swelling Skin : No Skin Lesions, No rash or signs of infection Neuro : + radiation/tingling, No Numbness, No Paresthesias, No headache, no loss of bowel or bladder incontinence, no saddle anesthesia, Focal weakness, No radiation, No weakness Denies history of IV drug usage. Yes all other systems are reviewed and are negative [facility] Past Medical History Attestation statement: The following information was validated with the patient. Medical History History of asthma Hx of ovarian cyst Surgical History Tubal ligation status Family History Family History Mother Ovarian cancer HTN (hypertension) Social History Social History Alcohol intake: never Patient Tobacco Use Status: Current everyday Tobacco user Cigarettes Per Day: 3 Substance Use Type: Marijuana Advance Directives: No Advance Directives Information Provided: Yes Patient : No Gender identity: Female Physical Exam Vital Signs: Vital Signs: Last Vital Signs Temp 98.3 F 10/28/21 10:46 Pulse 62 10/28/21 10:46 Resp 16 10/28/21 10:46 BP 92/50 L 10/28/21 10:46 Pulse Ox 99 10/28/21 10:46 BMI result Body Mass Index 22.4 vital signs have been reviewed as normal and appeared to be correct. Blood pressure normal. Heart rate normal. Respiration rate normal. Temperature normal. Oxygen saturation normal. Appearance: Alert. Oriented X3. No acute distress. Head: Normal external exam. Normocephalic. Atraumatic. Eyes: PERRLA. EOMI. Conjunctiva and sclera normal. Eyelids normal. ENT: EAC normal. TM's Normal. Pharynx normal. Uvula midline. Moist mucous membranes. No trismus noted. No drooling noted. No muffled voice noted. Neck: Normal inspection. Neck supple. FROM. No adenopathy. Thyroid Normal. No meningeal signs. No neck mass noted. CVS: Normal heart rate and rhythm. Heart sound normal. No murmurs noted. Pulses normal throughout. Respiratory: No respiratory distress. Painless inspiration. Breath sounds normal. No wheezes/rales/rhonchi noted. Chest nontender. No accessory muscle usage noted or decreased air movement noted. Abdomen: Soft and nontender. Bowel sounds normal in all 4 quadrants. No distention noted. No organomegaly noted. No visible injury noted. Back: No CVA tenderness. Full range of motion noted. No obvious deformities, or edema. Mild para-spinal muscular tenderness from lumbar region to coccyx. Full ROM in back and lower extremities. 5/5 strength hip extension/flexion, abduction, adduction. Mild Lumbar pain with hip flexion against resistance. Straight leg raise test negative on right; Straight leg raise test negative on left; Reflexes normal ankle and knee bilaterally; EHL motor strength normal bilaterally. No rashes/lesion/induration/fluctuance or signs infection noted. Skin: Skin warm and dry. Normal skin color. Normal skin turgor. No rashes/lesions/lacerations noted. Extremities: No lower extremity edema. No calf tenderness is noted. Extremities exhibit normal range of motion. Extremities nontender. Neuro: Oriented X 3. No motor deficit. No sensory deficit. Reflexes normal. Patient has a normal steady gait. Course Course Course Narrative: Pt c likely muscular pain, but could be herniated disc. Neuro exam shows no deficits. Not c/w AAA/epidural abscess/dissection.No high risk Hx (Incont, fever, immunosupp, recent surgery/LP, coag, signif trauma, wt loss, puls mass, hx/o Ca, TB, or IVDU) to warrant MRI/CT today. Not c/w Pyelo/UTI/kidney stone/spinal fx. Not cauda equina syndrome. Imaging not currently indicated although patient requesting therefore will obtain a x-ray of lumbar and left hip provide symptomatic treatment and re-evaluate. MDM - Back Pain/Injury Medical Records Attestation: I reviewed the patient's medical records. Imaging Data X-ray of lumbar spine and left hip: Attestation: I personally reviewed and interpreted this imaging study as follows: Radiologist's impression: FINDINGS: Bones and soft tissues are normal. There are phleboliths in the left hemipelvis and possible bilateral tubal ligation clips No fracture. Alignment is anatomic. Hip joint space is maintained. XR/XR hip LT w PEL1V IMPRESSION: No acute abnormality of the left hip. FINDINGS: The vertebral bodies and posterior elements are intact. There is L5-S1 facet arthropathy which may result in some degree of L5-S1 neural foraminal narrowing, though this could be projectional. The disc spaces are preserved and the vertebral alignment is normal. The paraspinal soft tissues are normal. XR/XR lumbar spine 2-3V IMPRESSION: Possible L5-S1 facet arthropathy and mild foraminal narrowing, though this could be projectional. There is no acute fracture or traumatic malalignment. Discharge Plan Discharge Clinical Impression: Osteoarthritis of facet joint at L5-S1 level of lumbosacral spine, Lumbar radiculopathy Patient Disposition: Home, Self-Care Instructions: Osteoarthritis (ED), Lumbar Radiculopathy (ED) Prescriptions: New prednisone 20 mg tablet 40 mg PO DAILY 5 Days Qty: 10 RF: 0 lidocaine [Lidoderm] 5 % adhesive patch,medicated 1 patch topical DAILY Qty: 15 RF: 0 diazepam [Valium] 10 mg tablet 10 mg PO TID PRN (Reason: muscle spasm) Qty: 10 RF: 0 oxycodone 5 mg tablet 5 mg PO Q6H PRN (Reason: pain) Qty: 14 RF: 0 No Action acetaminophen [Tylenol Extra Strength] 500 mg tablet 500 mg PO Q6H PRN (Reason: pain or fever) Qty: 20 RF: 0 lidocaine [Lidoderm] 5 % adhesive patch,medicated 1 patch topical DAILY MDD remove after 12 hours PRN (Reason: pain) Qty: 30 RF: 0 naproxen [EC-Naprosyn] 500 mg tablet,delayed release (DR/EC) 500 mg PO BID PRN (Reason: pain) Qty: 20 RF: 0 omeprazole magnesium [Prilosec OTC] 20 mg tablet,delayed release (DR/EC) 20 mg PO BID Qty: 30 RF: 0 lidocaine 4 % adhesive patch,medicated 1 patch topical DAILY PRN (Reason: pain) Qty: 10 RF: 0 diazepam [Valium] 5 mg tablet 5 mg PO TID PRN (Reason: muscle spasm) Qty: 10 RF: 0 baclofen 10 mg tablet 10 mg PO TID PRN (Reason: spasms) Qty: 12 RF: 0 Referrals: Kimberly Parekh MD [Primary Care Provider] - 2 days Stand Alone Forms: Work/School Release Print Language: Luxembourger
[2021-10-28] MEDS: predniSONE 20 MG TABLET 60 MG PO (11:33)
[2021-10-28] MEDS: oxyCODONE HCl Immed Release 5 MG TABLET PO (11:33)
[2021-10-28] MEDS: diazePAM 5 MG TABLET 10 MG PO (11:33)
== END 2021-10-28 13:06 | disposition home or self-care (01) ==
PROVIDERS: Emergency Provider Emergency Medicine; PCP Internal Medicine
DX: M47.27 Other spondylosis with radiculopathy, lumbosacral region (principal); M25.552 Pain in left hip; J45.909 Unspecified asthma, uncomplicated; F17.210 Nicotine dependence, cigarettes, uncomplicated
CPT/HCPCS: 72100; 73502; 99283

== ENCOUNTER 2023-01-01 13:20 | Emergency (ER) | payer OTHER, SELFPAY ==
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
[2023-01-01 13:39] VITALS: BP 113/55; PULSE 76; RESP 19; TEMP 36.6; O2SAT 98; BMI 23.1
== END 2023-01-01 14:05 | disposition home or self-care (01) ==
PROVIDERS: Emergency Provider Emergency Medicine; PCP Internal Medicine
DX: S29.012A Strain of muscle and tendon of back wall of thorax, initial encounter (principal); V43.62XA Car passenger injured in collision with other type car in traffic accident, initial encounter; G89.11 Acute pain due to trauma; M54.6 Pain in thoracic spine; Y93.89 Activity, other specified; Y92.414 Local residential or business street as the place of occurrence of the external cause; Y99.9 Unspecified external cause status
CPT/HCPCS: 99282; 99283

== ENCOUNTER 2023-01-08 13:19 | Outpatient (REF) | payer OTHER, SELFPAY ==
--- NOTE | ~2023-01-08 | XR_ITS ---
EXAMINATION: XR shoulder RT min 2V, XR scapula RT CLINICAL INFORMATION: Reason for Exam M25.511 - Pain in right shoulder COMPARISON: None TECHNIQUE: Four views of the shoulder. 2 views of the scapula. FINDINGS: No acute fracture or dislocation. Mild degenerative changes of the acromioclavicular joint with degenerative spurring. Soft tissues are unremarkable. XR/XR shoulder RT min 2V IMPRESSION: * No acute osseous abnormality. Mild degenerative changes of the shoulder.
--- NOTE | ~2023-01-08 | XR_ITS ---
EXAMINATION: XR THORACIC SPINE CLINICAL INFORMATION: Reason for Exam M54.9 - Dorsalgia, unspecified COMPARISON: None TECHNIQUE: 3 views of the thoracic spine FINDINGS: Vertebral body heights are maintained. Alignment is maintained. Disc space heights are maintained. Paravertebral soft tissues are unremarkable. XR/XR thoracic spine 3V IMPRESSION: Disc space heights are maintained.
--- NOTE | ~2023-01-08 | XR_ITS ---
EXAMINATION: XR shoulder RT min 2V, XR scapula RT CLINICAL INFORMATION: Reason for Exam M25.511 - Pain in right shoulder COMPARISON: None TECHNIQUE: Four views of the shoulder. 2 views of the scapula. FINDINGS: No acute fracture or dislocation. Mild degenerative changes of the acromioclavicular joint with degenerative spurring. Soft tissues are unremarkable. XR/XR scapula RT IMPRESSION: * No acute osseous abnormality. Mild degenerative changes of the shoulder.
== END 2023-01-08 13:20 | disposition home or self-care (01) ==
LOC: HO.XRAY 13:19
PROVIDERS: PCP Internal Medicine; Visit Provider Nurse Practitioner Family
DX: M25.511 Pain in right shoulder (principal); M54.9 Dorsalgia, unspecified
CPT/HCPCS: 72072; 73010; 73030

== ENCOUNTER 2023-02-11 10:00 | Outpatient (RCR) | payer OTHER, SELFPAY ==
--- NOTE | 2023-01-23 09:02 | MHC.PT.EP ---
[facility] [place] Office [place] Office [place] Office [address] Mandy Carreon [address] [phone] F: [phone] F: [phone] F: [phone] F: [phone] Physical Therapy Plan of Care Date of Evaluation: Date of Surgery: N/A Diagnosis: dorsalgia (RC) Assessment: pt is a 37 y/o female presenting to physical therapy w/ referring diagnosis of dorsalgia. Impairments include pain, decreased range of motion, decreased strength, impaired functional mobility, impaired postural awareness, and altered ambulation mechanics. pt is a good candidate for skilled PT due to age, potential remediation of impairments, typical disease/condition progression and prognosis, comorbidities, and motivation. pt would benefit from skilled PT intervention to provide a tailored strengthening and stretching exercise program, functional training, gait training, postural re-training, neuromuscular re-education, modalities as needed for pain, equipment safety demonstration. Frequency and Duration: The patient will be seen 2x/wk for 4 wks Short Term Goals: pt will be I w/ HEP to promote self-management of condition. pt will demo proper sitting posture w/ lumbar roll to promote neutral spine w/ seated ADLs. 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 pt will improve B shoulder flexion and elbow flexion strength to 5/5 to promote ease in carrying groceries. Treatment Plan: Modalities to reduce pain, spasms and effusion. Manual therapy to restore motion and function. Therapeutic exercise to improve strength and flexibility. Neuromuscular re-education for posture and balance. Therapeutic activities to return to functional activities of daily living. Electronically signed by: Katelyn Hernandez PT, DPT Please sign and return to therapist. Thank you for your referral.
--- NOTE | 2023-02-13 11:17 | MHC.PT.DC ---
[facility] [place] Office [place] Office [place] Office [address] Mandy Carreon [address] [phone] F: [phone] F: [phone] F: [phone] F: [phone] Physical Therapy Discharge Report Diagnosis: dorsalgia (RC) Date of Surgery: N/A Date of Evaluation: 01/23/23 Date of Discharge: 02/13/23 Treatments to Date: 2 Cancellations to Date: 1 No Shows to Date: 4 Discharge Status: Visit Non-compliance Discharge Summary: The patient has no showed 4 visits since her initial evaluation. Per [facility] attendance policy she is being discharged for non-compliance. She has only attended one treatment where she was initiated with a gentle mobility and postural exercise program. She is discharged from this physical therapy plan of care. Electronically signed by: Katelyn Hernandez PT, DPT Please sign and return to therapist. Thank you for your referral.
== END 2023-02-13 11:18 | disposition home or self-care (01) ==
LOC: HO.PT 10:00
PROVIDERS: PCP Internal Medicine; Visit Provider Nurse Practitioner Family
DX: M54.9 Dorsalgia, unspecified (principal)
CPT/HCPCS: 97110; 97140; 97161

== ENCOUNTER 2023-02-27 11:19 | Emergency (ER) | payer OTHER, SELFPAY ==
--- NOTE | 2023-02-27 11:46 | ED.NECK ---
HPI - Neck Pain/Injury General Chief Complaint: Neck Pain/Injury Stated Complaint: l sided neck and shoulder pain Time Seen by Provider: 02/27/23 11:51 Source: patient Mode of arrival: ambulatory Limitations: no limitations History of Present Illness HPI Narrative: 37 yo female present to the ER for evaluation of nontraumatic left sided neck pain for the last 1 week. She woke up with the pain 1 week ago. She reports the pain is in the left lateral neck, worse with palpation and movement. No headache. the pain extends down to the the left clavicular area. no swelling or redness. no toothache or facial swelling. no fever or chills. she has been intermittently taking flexeril, using patches and taking tylenol with no relief. she went to PT but it seemed to make the pain worse. MD complaint: neck pain Onset (ago): week(s) (1) Place: home Radiation: left lateral Severity: moderate Severity scale (1-10): 7 Quality: sharp and spasming Duration: intermittent Relieving factors: immobilization Exacerbating factors: movement of neck Context: unknown Associated symptoms: none Treatments prior to arrival: none Related Data Previous Rx's Medication Instructions Recorded acetaminophen 500 mg capsule 500 mg PO Q6H PRN fever 7 days #28 10/01/22 caps acetaminophen 325 mg tablet 650 mg PO Q4H PRN pain #30 tabs 01/01/23 (Tylenol) cyclobenzaprine 10 mg tablet 10 mg PO TID PRN muscle spasm #15 01/01/23 tabs diclofenac sodium 1 % topical gel 2 g topical QID PRN pain #100 grams 01/03/23 (Arthritis Pain (diclofenac)) prednisone 20 mg tablet 40 mg PO DAILY #10 tabs 02/27/23 tizanidine 4 mg capsule 4 mg PO Q8H PRN muscle spasticity 02/27/23 #10 caps Allergies Allergy/AdvReac Type Severity Reaction Status Date / Time ibuprofen [IBUPROFEN] Allergy Unknown ITCHING, Verified 01/03/23 16:40 RASH Review of Systems Review of Systems: Yes all other systems are reviewed and are negative [facility] Past Medical History Medical History History of asthma Hx of ovarian cyst Surgical History Tubal ligation status Family History Family History Mother Ovarian cancer HTN (hypertension) Social History Social History Housing: Apartment Alcohol intake: never Patient Tobacco Use Status: Current everyday Tobacco user Tobacco use type: Cigarette Cigarettes Per Day: 3 e-Cigarette/Vaping Use: Never Used Second Hand Smoke Exposure: No Substance Use Type: Marijuana Advance Directives: No service: No Current occupational status: employed Current occupational exposures/hazards: No Gender identity: Female Cognitive needs: No Hearing needs: No Vision needs: Yes Physical Exam Vital Signs: Vital Signs: Last Vital Signs Temp 98.3 F 02/27/23 11:47 Pulse 77 02/27/23 11:47 Resp 19 02/27/23 11:47 BP 104/68 02/27/23 11:47 Pulse Ox 100 02/27/23 11:47 O2 Del Method Room Air 02/27/23 11:47 BMI result Body Mass Index 22.1 Appearance: Alert. Oriented X3. No acute distress. HEENT: normal inspection Neck: normal inspection. no midline tenderness. left lateral neck with soft tissue tenderness, palpable spasm. limited rom due to pain. CVS: Normal heart rate and rhythm. Pulses normal. Respiratory: No respiratory distress. Skin: Skin warm and dry. Normal skin color. Normal skin turgor. No rashes. Extremities: normal inspection, normal ROM x4 Neuro: Oriented X 3. No motor deficit. No sensory deficit. Medical Decision Making Medical Decision Making MDM Narrative: 37 yo female presenting to the ER for evaluation of left sided neck pain and tenderness with palpable spasm and muscle tenderness on examination. Will plan to start her on muscle relaxer, NSAID and use gentle massage and stretching. She will use these interventions regularly and follow up with her PCP for further management. stable for d/c home Differential Diagnosis Differential Diagnoses: The differential diagnosis associated with the presentation includes torticollis, cervical muscle strain/spasm, doubt dissection or vascular injury, no meningeal signs External Record Review External record reviewed: Outpatient record, Prior outpatient labs and Prior outpatient radiology Prescription Management I considered prescription management with: Pain Medication and Other (muscle relaxer) Critical Care Time Critical Care Time Critical Care Time: No Discharge Plan Discharge Clinical Impression: Cervical muscle strain Patient Disposition: Home, Self-Care Instructions: Cervical Strain (DC) Additional Instructions: Your pain is most likely due to muscle strain and spasm. Work on gentle massage and range of motion exercises. Use ice several times per day for 20 minutes at a time for the next 48 hours and then change to heat. Take medications as prescribed to help with pain and discomfort. Follow up with your Primary Care Doctor this week. If you develop new or worsening symptoms call 911 or come back to the ER for further evaluation. Prescriptions: New tizanidine 4 mg capsule 4 mg PO Q8H PRN (Reason: muscle spasticity) Qty: 10 0RF prednisone 20 mg tablet 40 mg PO DAILY Qty: 10 0RF No Action cyclobenzaprine 10 mg tablet 10 mg PO TID PRN (Reason: muscle spasm) Qty: 15 0RF acetaminophen [Tylenol] 325 mg tablet 650 mg PO Q4H PRN (Reason: pain) Qty: 30 0RF acetaminophen 500 mg capsule 500 mg PO Q6H PRN (Reason: fever) 7 Days Qty: 28 0RF diclofenac sodium [Arthritis Pain (diclofenac)] 1 % gel 2 g topical QID PRN (Reason: pain) Qty: 100 1RF Stand Alone Forms: Work/School Release Interventions: ED Discharge Assessment Last Done: 02/27/23 11:57 Discharge Date/Time: 02/27/23 11:58
[2023-02-27 11:47] VITALS: BP 104/68; PULSE 77; RESP 19; TEMP 36.8; O2SAT 100; BMI 22.1
== END 2023-02-27 11:58 | disposition home or self-care (01) ==
PROVIDERS: Emergency Provider Emergency Medicine; PCP Internal Medicine
DX: S13.4XXA Sprain of ligaments of cervical spine, initial encounter (principal); M54.2 Cervicalgia; X58.XXXA Exposure to other specified factors, initial encounter; Y93.9 Activity, unspecified; Y92.9 Unspecified place or not applicable; Y99.9 Unspecified external cause status; Z79.899 Other long term (current) drug therapy
CPT/HCPCS: 99282; 99283

== ENCOUNTER 2023-04-03 01:32 | Emergency (ER) | payer OTHER, SELFPAY ==
--- NOTE | ~2023-04-03 | XR_ITS ---
EXAMINATION: XR SHOULDER, LEFT XR CLAVICLE, LEFT CLINICAL INDICATION: Pain and lump along clavicle COMPARISON: None TECHNIQUE: 4 views of the left shoulder. 2 views of the left clavicle. FINDINGS: Glenohumeral alignment appears anatomic. No acute fracture is seen. Acromioclavicular joint appears intact. Clavicle is unremarkable. XR/XR clavicle LT IMPRESSION: No acute findings identified in the left shoulder or clavicle.
--- NOTE | ~2023-04-03 | XR_ITS ---
EXAMINATION: XR SHOULDER, LEFT XR CLAVICLE, LEFT CLINICAL INDICATION: Pain and lump along clavicle COMPARISON: None TECHNIQUE: 4 views of the left shoulder. 2 views of the left clavicle. FINDINGS: Glenohumeral alignment appears anatomic. No acute fracture is seen. Acromioclavicular joint appears intact. Clavicle is unremarkable. XR/XR shoulder LT min 2V IMPRESSION: No acute findings identified in the left shoulder or clavicle.
--- NOTE | ~2023-04-03 | XR_ITS ---
EXAMINATION: XR CHEST CLINICAL INFORMATION: Lump on left chest COMPARISON: 09/22/2021 TECHNIQUE: 2 views of the chest were obtained. FINDINGS: The lungs are clear with no focal consolidation. No evidence of pneumothorax, pulmonary edema, or pleural effusions. The cardiomediastinal silhouette is unremarkable. No acute osseous findings. XR/XR chest 2V IMPRESSION: No acute cardiopulmonary findings.
[2023-04-03 01:35] VITALS: BP 126/70; PULSE 92; RESP 18; TEMP 36.6; O2SAT 98; BMI 22.5
[2023-04-03 01:56] LABS: Basophils Absolute Auto 0.1 X10*3/uL (0.0-0.2); Basophils Percent Auto 0.8 % (0-2); Eosinophils Absolute Auto 0.3 X10*3/uL (0.0-0.4); Eosinophils Percent Auto 4.8 % (0-4); Hematocrit 33.2 % (37.0-47.0); Hemoglobin 11.2 g/dl (12.0-16.0); Imm Gran Abs Auto 0.01 X10*3/uL (0.00-0.03); Imm Gran Pct Auto 0.2 % (0.0-0.4); Lymphocytes Percent Auto 33.1 % (20-40); MANUAL DIFF FLAG NO; Mean Corpuscular HGB Conc 33.7 g/dl (31.0-35.0); Mean Corpuscular Hemoglobin 28.9 pg (27.0-33.0); Mean Corpuscular Volume 85.6 fL (80.0-98.0); Mean Platelet Volume 9.1 fL (9.4-12.3); Monocytes Absolute Auto 0.6 X10*3/uL (0.1-1.2); Monocytes Percent Auto 9.9 % (2-11); Neutrophils Absolute Auto 3.1 x10*3/uL (2.0-8.3); Neutrophils Percent Auto 51.2 % (45-73); Platelet Count 358 X10*3/uL (160-400); Red Blood Count 3.88 X10*6/uL (4.20-5.50)
[2023-04-03 02:11] VITALS: BP 106/75; PULSE 80; RESP 18; TEMP 37.2; O2SAT 99
[2023-04-03 02:13] LABS: Anion Gap 12 (12-20); Blood Urea Nitrogen 11 mg/dL (9-16); Calcium 8.9 mg/dL (8.4-10.2); Carbon Dioxide 23 mmol/L (22-29); Chloride 109 mmol/L (96-108); Creatinine Clr Calc Pharmacy 86.6; Estimated Glomerular Filt Rate > 60; Glucose Random 96 mg/dL (60-115); Potassium 3.7 mmol/L (3.3-5.1); Sodium 140 mmol/L (135-145)
--- NOTE | 2023-04-03 03:49 | ED_ITS ---
HPI - General Adult General Chief complaint: General Medical Stated complaint: pain in shoulder bone area, revisit Time Seen by Provider: 04/03/23 03:48 Source: patient and family Mode of arrival: ambulatory Limitations: no limitations History of Present Illness HPI narrative: 37-year-old female came in for evaluation of left shoulder pain that has been going for over a month, patient had a prior ED visit for similar symptoms. Patient describes it as left shoulder pain that worsening with moving the left shoulder were turning her head the neck to the left or right, patient declined any trauma to the left shoulder. Patient also noticed the bony growth over anterior chest wall, that the patient is concerned about. No fever, no chills. Related Data Previous Rx's Medication Instructions Recorded acetaminophen 500 mg capsule 500 mg PO Q6H PRN fever 7 days #28 10/01/22 caps acetaminophen 325 mg tablet 650 mg PO Q4H PRN pain #30 tabs 01/01/23 (Tylenol) cyclobenzaprine 10 mg tablet 10 mg PO TID PRN muscle spasm #15 01/01/23 tabs diclofenac sodium 1 % topical gel 2 g topical QID PRN pain #100 grams 01/03/23 (Arthritis Pain (diclofenac)) prednisone 20 mg tablet 40 mg PO DAILY #10 tabs 02/27/23 tizanidine 4 mg capsule 4 mg PO Q8H PRN muscle spasticity 02/27/23 #10 caps oxycodone 5 mg tablet 5 mg PO BID PRN pain #4 tabs 04/03/23 Allergies Allergy/AdvReac Type Severity Reaction Status Date / Time ibuprofen [IBUPROFEN] Allergy Unknown ITCHING, Verified 04/03/23 01:35 RASH Review of Systems Review of Systems: All other systems are reviewed and are negative Constitutional: Reports as per HPI and Reports no additional constitutional complaints Eyes: Reports as per HPI and Reports no additional eye complaints Reports system reviewed and no additional complaints, except as documented Cardiovascular: Reports as per HPI and Reports no additional cardiovascular complaints Respiratory: Reports as per HPI and Reports no additional respiratory complaints Gastrointestinal: Reports as per HPI and Reports no additional gastrointestinal complaints Genitourinary: Reports no additional female genitourinary complaints Musculoskeletal: Reports no additional musculoskeletal complaints Skin/Breast: Reports system reviewed and no additional complaints, except as docu Psychiatric: Reports no additional psychiatric complaints Endocrine: Reports no additional endocrine complaints Hematologic/Lymphatic: Reports no additional hematologic/lymphatic complaints Allergic/Immunologic: Reports no additional allergic/immunologic complaints Reports system reviewed and no additional complaints, except as documented and Reports Abnormal speech present [facility], [facility] Past Medical History Medical History History of asthma Hx of ovarian cyst Surgical History Tubal ligation status Family History Family History Mother Ovarian cancer HTN (hypertension) Social History Social History Housing: Apartment Alcohol intake: never Patient Tobacco Use Status: Current everyday Tobacco user Tobacco use type: Cigarette Cigarettes Per Day: 3 Smoked in Last 30 Days: Yes e-Cigarette/Vaping Use: Never Used Second Hand Smoke Exposure: No Use of substances other than those prescribed or required for medical reasons: No Substance Use Type: Marijuana Any prior treatment program specific to substance use: No Advance Directives: No Advance Directives Information Provided: Yes Patient : No service: No Current occupational status: employed Current occupational exposures/hazards: No Gender identity: Female Cognitive needs: No Hearing needs: No Vision needs: Yes Physical Exam ED Vital Signs: Vital Signs - 24 hr 04/03/23 01:35 04/03/23 02:11 Temperature 97.9 F 99.0 F Pulse Rate 92 80 Respiratory Rate 18 18 Blood Pressure 126/70 106/75 Pulse Oximetry 98 99 Oxygen Delivery Method Room Air Room Air BMI result Body Mass Index 22.5 vital signs have been reviewed as appeared to be correct. Blood pressure normal. Heart rate normal. Respiration rate normal. Temperature normal. Oxygen saturation normal. Appearance: Alert. Oriented X3. No acute distress. Head: Normal external exam. Normocephalic. Atraumatic. No Gomez signs noted. No raccoon eyes noted Eyes: PERRLA. EOMI. Conjunctiva and sclera normal. Eyelids normal. ENT: TM's Normal. Pharynx normal. Uvula midline. Moist mucous membranes. No trismus noted. No drooling noted. No muffled voice noted. Neck: Normal inspection. Neck supple. FROM. No adenopathy. Thyroid Normal. No meningeal signs. No neck mass noted. CVS: Normal heart rate and rhythm. Heart sound normal. No murmurs noted. Pulses normal throughout. Respiratory: No respiratory distress. Painless inspiration. Breath sounds normal. No wheezes/rales/rhonchi noted. Chest nontender. No accessory muscle usage noted or decreased air movement noted. Abdomen: Soft and nontender. Bowel sounds normal in all 4 quadrants. No distention noted. No organomegaly noted. No visible injury noted. Back: No CVA tenderness. Full range of motion noted. Skin: Skin warm and dry. Normal skin color. Normal skin turgor. No rashe s/lesions/lacerations noted. Extremities: Left shoulder: Shoulder is held in adduction position, mild tenderness with abduction, tenderness over humerus head, prominent medial end left clavicle, no fluctuation, no soft tissue mass. Neuro: Oriented X 3. Cranial nerve exam: II-XII are grossly intact No motor deficit. No sensory deficit. Reflexes normal. Course Course Course Narrative: 37-year-old female came in for evaluation of left shoulder pain exam is consistent with likely rotator cuff tendinitis, unremarkable radiographic study of the shoulder will consider NSAIDs, shoulder immobilizer, follow-up with ortho. Reevaluation(s) Reevaluation #1: I discussed with the patient and her significant other who was interruptive while explaining the discharge instructions and the x-rays result, and the follow-up with Dr. Tariq for outpatient evaluation. despite my effort to assure the patient that the x-ray were negative the significant other kept doubting the result of the x-ray. patient was given a clears discharge instructions by me and the nurse. Time: 05:04 Medical Decision Making Differential Diagnosis Differential Diagnoses: The differential diagnosis associated with the presentation includes ( Rotator cuff tendinitis, cervical radiculopathy, shoulder fracture.) Lab Data MDM Lab Attestation statement: I reviewed the patient's lab results. 04/03/23 01:48 04/03/23 01:48 Labs: Lab Results 04/03/23 04/03/23 Range/Units 01:48 01:48 WBC 6.0 (4.8-10.8) X10*3/uL RBC 3.88 L (4.20-5.50) X10*6/uL Hgb 11.2 L (12.0-16.0) g/dl Hct 33.2 L (37.0-47.0) % MCV 85.6 (80.0-98.0) fL MCH 28.9 (27.0-33.0) pg MCHC 33.7 (31.0-35.0) g/dl RDW 13.0 (11.0-16.0) % Plt Count 358 (160-400) X10*3/uL MPV 9.1 L (9.4-12.3) fL Immature Gran % (Auto) 0.2 (0.0-0.4) % Neut % (Auto) 51.2 (45-73) % Lymph % (Auto) 33.1 (20-40) % [place] % (Auto) 9.9 (2-11) % Eos % (Auto) 4.8 H (0-4) % Baso % (Auto) 0.8 (0-2) % Lymph # (Auto) 2.0 (1.2-4.9) X10*3/uL [place] # (Auto) 0.6 (0.1-1.2) X10*3/uL Eos # (Auto) 0.3 (0.0-0.4) X10*3/uL Baso # (Auto) 0.1 (0.0-0.2) X10*3/uL Abs Immat Gran (auto) 0.01 (0.00-0.03) X10*3/uL Absolute Neuts (auto) 3.1 (2.0-8.3) x10*3/uL Absolute Nucleated RBC 0.000 (0.0-0.012) X10*3/uL Nucleated RBC % (auto) 0.0 (0.0-0.2) /100WBC Sodium 140 (135-145) mmol/L Potassium 3.7 (3.3-5.1) mmol/L Chloride 109 H (96-108) mmol/L Carbon Dioxide 23 (22-29) mmol/L Anion Gap 12 (12-20) BUN 11 (9-16) mg/dL Creatinine 0.80 (0.5-1.4) mg/dL Estim Creat Clear Calc 86.6 Estimated GFR > 60 Random Glucose 96 (60-115) mg/dL Calcium 8.9 (8.4-10.2) mg/dL Independent Interpretation I performed an independent interpretation of an: Plain X-Ray ( Left shoulder/ left clavicle: No acute finding identified and the left shoulder or clavicle.) Radiology Impression Discussion of test interpretation with radiology: I have reviewed the radiolog ist's reading. Discharge Plan Discharge Clinical Impression: Tendonitis of left rotator cuff Patient Disposition: Home, Self-Care Instructions: Rotator Cuff Tendinitis (ED) Prescriptions: New oxycodone 5 mg tablet 5 mg PO BID PRN (Reason: pain) Qty: 4 0RF Rx Instructions: Partial Fill upon patient request. No Action cyclobenzaprine 10 mg tablet 10 mg PO TID PRN (Reason: muscle spasm) Qty: 15 0RF acetaminophen [Tylenol] 325 mg tablet 650 mg PO Q4H PRN (Reason: pain) Qty: 30 0RF tizanidine 4 mg capsule 4 mg PO Q8H PRN (Reason: muscle spasticity) Qty: 10 0RF prednisone 20 mg tablet 40 mg PO DAILY Qty: 10 0RF acetaminophen 500 mg capsule 500 mg PO Q6H PRN (Reason: fever) 7 Days Qty: 28 0RF diclofenac sodium [Arthritis Pain (diclofenac)] 1 % gel 2 g topical QID PRN (Reason: pain) Qty: 100 1RF Referrals: Harrison Tariq MD [Physician] - Interventions: ED Discharge Assessment Last Done: 04/03/23 04:12 Discharge Date/Time: 04/03/23 04:47
--- NOTE | 2023-04-03 04:35 | PC.NURSE ---
Addendum entered by Lavon Ferris 04/03/23 04:39: Primary nurse came to this RN and reported that pt was unhappy with discharge plan. This RN then entered pt room and introduced myself as the charge nurse in the ED. Pt then proceeded to express dissatisfaction because, the doctor did not come explain to us the diagnosis . This RN then explained that the primary nurse attempted to explain the results of the examines and the doctor's diagnosis, but the pt insisted that no one had told her anything. This RN and ED provider then entered the room together and explained the results of all the examines. Pt was still upset because we just, prescribed pain meds and discharged . Original Note: Primary nurse came to this RN and reported that pt was unhappy with discharge plan. This RN then entered pt room and introduced myself as the charge nurse in the ED. Pt then proceeded to express dissatisfaction because, the doctor did not come explain to us the diagnosis . This RN then explained that
== END 2023-04-03 04:47 | disposition home or self-care (01) ==
PROVIDERS: Emergency Provider Emergency Medicine; PCP Internal Medicine
DX: M75.32 Calcific tendinitis of left shoulder (principal); M25.512 Pain in left shoulder; M54.2 Cervicalgia; R07.89 Other chest pain; F17.210 Nicotine dependence, cigarettes, uncomplicated; Z71.6 Tobacco abuse counseling; Z79.899 Other long term (current) drug therapy
CPT/HCPCS: 36415; 71046; 73000; 73030; 80048; 85025; 99283; 99284

== ENCOUNTER → 2023-04-18 10:29 | Outpatient (BNVA) | payer OTHER, SELFPAY | PROVIDERS: PCP Internal Medicine; Visit Provider Physician Assistant | DX: S43.203A Unspecified subluxation of unspecified sternoclavicular joint, initial encounter (principal) | CPT/HCPCS: 99202 ==

== ENCOUNTER 2023-06-12 22:11 | Emergency (ER) | payer OTHER, SELFPAY ==
--- NOTE | ~2023-06-12 | XR_ITS ---
EXAMINATION: XR CHEST CLINICAL INFORMATION: Left-sided mid back pain/cough. COMPARISON: Chest radiograph 04/03/2023. TECHNIQUE: 2 views of the chest were obtained. FINDINGS: Normal appearance of the cardiomediastinal silhouette. No focal airspace opacity, pleural effusion or pneumothorax. No acute osseous findings. The visualized upper abdomen is within normal limits. XR/XR chest 2V IMPRESSION: No acute cardiopulmonary findings.
--- NOTE | ~2023-06-12 | XR_ITS ---
EXAMINATION: XR LUMBOSACRAL SPINE CLINICAL INFORMATION: Pain. COMPARISON: X-ray lumbar spine 10/28/2021. TECHNIQUE: Three views of the lumbosacral spine. FINDINGS: No evidence of acute compression deformity or traumatic subluxation. Mild intervertebral disc height loss and facet arthropathy with some degree of neural foraminal encroachment at L5-S1, not significantly changed 10/28/2021. SI joints are symmetric. No significant paraspinal soft tissue abnormality. XR/XR lumbar spine 2-3V IMPRESSION: 1. No acute compression deformity or malalignment. 2. Mild lumbar spondylosis at L5-S1, not significantly changed since 10/28/2021.
--- NOTE | ~2023-06-12 | CT_ITS ---
EXAMINATION: CT ABDOMEN AND PELVIS WITHOUT CONTRAST CLINICAL INFORMATION: Left flank pain. COMPARISON: CT abdomen/pelvis 09/22/2021. TECHNIQUE: Multidetector volumetric imaging was performed from the superior aspect of the liver through the pubic symphysis. Sagittal and coronal reformatted images were obtained on the technologist's workstation. This CT examination was performed using dose optimization techniques as appropriate, variously including the following: *Automated exposure control *Adjustment of mA and/or kV according to patient size (this includes techniques or standardized protocols for targeted exams where dose is matched to indication/reason for exam; i.e. extremities or head) *Use of iterative reconstruction technique DLP: 333 mGy-cm FINDINGS: The lack of intravenous contrast limits evaluation of the solid visceral organs including the liver, spleen, pancreas, and kidneys. LUNG BASES: Sub-4 mm pulmonary nodules, for instance in the left lower lung axial image 10 series 4 are stable compared to 09/22/2021 which is reassuring and for which no imaging follow-up is recommended. No focal consolidation or pleural effusion. LIVER, GALLBLADDER, AND BILIARY TREE: The noncontrast liver is normal in size, shape, and attenuation. No focal hepatic lesion or biliary ductal dilatation is present. The gallbladder is unremarkable with no evidence of radiopaque gallstones, gallbladder wall thickening, or obvious pericholecystic inflammatory changes. PANCREAS: Limited noncontrast examination. No significant peripancreatic fat stranding or free fluid. SPLEEN: Unremarkable. ADRENAL GLANDS: Unremarkable. KIDNEYS AND URETERS: No nephrolithiasis or hydronephrosis. No significant perinephric fat stranding. BLADDER: Underdistended limiting its evaluation. GASTROINTESTINAL TRACT: Nonspecific gastric distention. The small bowel is nondilated. The appendix is not identified, however there are no right lower quadrant inflammatory changes to suspect acute appendicitis. No evidence of bowel obstruction. No significant pericolonic fat stranding. ABDOMINAL WALL: No significant hernia is appreciated. LYMPH NODES: Evaluation is limited due to paucity of abdominal fat and lack of IV contrast, however accounting for these limitations not bulky lymphadenopathy is noted. VASCULAR: Normal caliber of the abdominal aorta. PELVIC VISCERA: Retroverted uterus. Dominant follicle in the right ovary, for which no imaging follow-up is recommended. No significant amount of free fluid. OSSEOUS STRUCTURES: No acute or aggressive appearing osseous findings. CT/CT abdomen pelvis wo IV con IMPRESSION: Evaluation is limited due to paucity of abdominal fat and lack of IV contrast, adequate definition of the bowel is not achieved, if indicated a repeat examination with oral contrast or IV contrast could be obtained. However, accounting for these limitations, aside from nonspecific gastric distention that could be seen with postprandial state, gastroparesis or gastric outlet obstruction, no other discrete abnormality is identified to explain the patient's symptoms. No nephrolithiasis or hydronephrosis.
[2023-06-12 22:16] VITALS: BP 111/77; PULSE 98; RESP 18; TEMP 36.2; O2SAT 98; BMI 20.5
--- NOTE | 2023-06-12 23:38 | ED_ITS ---
HPI - Back Pain/Injury General Chief Complaint: Back Pain/Injury Stated Complaint: Lower back pain Time Seen by Provider: 06/12/23 23:24 Source: patient Mode of arrival: ambulatory Limitations: no limitations History of Present Illness HPI Narrative: 37-year-old female came in for evaluation of left flank pain that has been constant for 2 days pain is worse with movement or lying supine, patient has been also have nonproductive cough for the past 2 days no fever or chills. No SOB, no CP, no fever, no chills, no dysuria, no frequency urination, no hematuria. Related Data Previous Rx's Medication Instructions Recorded oxycodone 5 mg tablet 5 mg PO BID PRN pain #5 tabs 06/12/23 oxycodone 5 mg tablet 5 mg PO Q8H PRN pain #5 tabs 06/12/23 Allergies Allergy/AdvReac Type Severity Reaction Status Date / Time ibuprofen [IBUPROFEN] Allergy Unknown ITCHING, Verified 06/12/23 22:16 RASH Review of Systems Review of Systems: All other systems are reviewed and are negative Constitutional: Reports as per HPI and Reports no additional constitutional complaints Eyes: Reports as per HPI and Reports no additional eye complaints Reports system reviewed and no additional complaints, except as documented Cardiovascular: Reports as per HPI and Reports no additional cardiovascular complaints Respiratory: Reports as per HPI and Reports no additional respiratory complaints Gastrointestinal: Reports as per HPI and Reports no additional gastrointestinal complaints Genitourinary: Reports no additional female genitourinary complaints Musculoskeletal: Reports no additional musculoskeletal complaints Skin/Breast: Reports system reviewed and no additional complaints, except as docu Psychiatric: Reports no additional psychiatric complaints Endocrine: Reports no additional endocrine complaints Hematologic/Lymphatic: Reports no additional hematologic/lymphatic complaints Allergic/Immunologic: Reports no additional allergic/immunologic complaints Reports system reviewed and no additional complaints, except as documented and Reports Abnormal speech present [facility] Past Medical History Medical History History of asthma Hx of ovarian cyst Surgical History Tubal ligation status Family History Family History Mother Ovarian cancer HTN (hypertension) Father HTN (hypertension) Diabetes mellitus Social History Social History Housing: Apartment Alcohol intake: never Patient Tobacco Use Status: Current everyday Tobacco user Tobacco use type: Cigarette Cigarettes Per Day: 3 Smoked in Last 30 Days: Yes e-Cigarette/Vaping Use: Never Used Second Hand Smoke Exposure: No Use of substances other than those prescribed or required for medical reasons: No Substance Use Type: Marijuana Advance Directives: No Advance Directives Information Provided: Yes Patient : No service: No Current occupational status: employed 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 Blood pressure normal. Heart rate normal. Respiration rate normal. Temperature normal. Oxygen saturation normal. Appearance: Alert. Oriented X3. No acute distress. Head: Normal external exam. Normocephalic. Atraumatic. No Gomez signs noted. No raccoon eyes noted Eyes: PERRLA. EOMI. Conjunctiva and sclera normal. Eyelids normal. ENT: TM's Normal. Pharynx normal. Uvula midline. Moist mucous membranes. No trismus noted. No drooling noted. No muffled voice noted. Neck: Normal inspection. Neck supple. FROM. No adenopathy. Thyroid Normal. No meningeal signs. No neck mass noted. CVS: Normal heart rate and rhythm. Heart sound normal. No murmurs noted. Pulses normal throughout. Respiratory: No respiratory distress. Painless inspiration. Breath sounds normal. No wheezes/rales/rhonchi noted. Chest nontender. No accessory muscle usage noted or decreased air movement noted. Abdomen: Soft and nontender. Bowel sounds normal in all 4 quadrants. No distention noted. No organomegaly noted. No visible injury noted. Back: Left CVA tenderness. Full range of motion noted. Skin: Skin warm and dry. Normal skin color. Normal skin turgor. No rashes/lesions/lacerations noted. Extremities: No lower extremity edema. Extremities exhibit normal range of motion. Extremities nontender. Neuro: Oriented X 3. Cranial nerve exam: II-XII are grossly intact No motor deficit. No sensory deficit. Reflexes normal. Course Course Course Narrative: 37-year-old female presented with left flank midback pain started 2 days ago with nonproductive cough, history and physical exam is consistent with muscular pain, patient was given oxycodone and felt better with the oxycodone. Patient had lumbar spine x-ray/chest x-ray both are negative. CT abdomen and pelvis was limited however showing obvious or discrete renal obstruction, Will discharge the patient to use ibuprofen if needed for pain and muscle relaxant. Medications Administered Discontinued Medications Generic Name Dose Route Start Last Admin Trade Name Freq PRN Reason Stop Dose Admin Oxycodone HCl 5 mg 06/12/23 23:43 06/12/23 23:50 Oxycodone Hcl Immed Release 5 Mg Tablet PO 06/12/23 23:44 5 mg ONCE ONE Administration Medical Decision Making Differential Diagnosis Differential Diagnoses: The differential diagnosis associated with the presentation includes (UTI, myofascial left flank pain, , pneumonia.) Admission/Observation Consideration of admission/observation: Escalation of care including admission/observation considered Lab Data Labs: Lab Results 06/12/23 06/12/23 Range/Units 23:52 23:52 Urine Color Dark Yellow Urine Appearance Clear Urine pH 5.5 (5.0-9.0) Ur Specific [place] >= 1.030 H (1.005-1.025) Urine Protein 30 (1+) H (Neg-Trace) mg/dL Urine Glucose (UA) Negative (Negative) mg/dL Urine Ketones Trace (Negative) mg/dL Urine Blood Large (3+) H (Negative) Urine Nitrite Negative (Negative) Ur Leukocyte Esterase Negative (Negative) Urine RBC >20 H (0-2) /HPF Urine WBC 0-5 (0-5) /HPF Ur Squamous Epith Cells 0-2 (0-2) /HPF Urine Bacteria Trace (None Seen) Hyaline Casts 0-2 (0-2) /LPF Urine Test NEGATIVE (NEGATIVE) Independent Interpretation I performed an independent interpretation of an: Plain X-Ray (Chest/lumbar spine: No acute intrathoracic pathology. No lumbar spine deformity.) Radiology Impression Discussion of test interpretation with radiology: I have reviewed the radiologist's reading. Discharge Plan Discharge Clinical Impression: Strain of lumbar region Patient Disposition: Home, Self-Care Instructions: Muscle Strain (ED) Prescriptions: New oxycodone 5 mg tablet 5 mg PO Q8H PRN (Reason: pain) Qty: 5 0RF Rx Instructions: Partial Fill upon patient request. oxycodone 5 mg tablet 5 mg PO BID PRN (Reason: pain) Qty: 5 0RF Rx Instructions: Partial Fill upon patient request.
[2023-06-12] MEDS: oxyCODONE HCl Immed Release 5 MG TABLET PO (23:50)
[2023-06-12 23:58] LABS: Appearance Urine Clear; Color Urine Dark Yellow; Glucose Urine UA Negative (Negative); Leukocyte Esterase Urine Negative (Negative); Nitrite Urine Negative (Negative); PH 5.5 (5.0-9.0); Specific Gravity - Urine >= 1.030 (1.005-1.025); UMIC TRIGGER UACC YES; Urine Blood Large (3+) (Negative); Urine Ketones Trace mg/dL (Negative); Urine Protein 30 (1+) mg/dL (Neg-Trace)
[2023-06-13 00:01] LABS: UPreg QC Valid YES; Urine Pregnancy NEGATIVE (NEGATIVE)
[2023-06-13 00:03] LABS: Bacteria Urine Trace (None Seen); Hyaline Casts Urine 0-2 /LPF (0-2); RBC Urine >20 /HPF (0-2); Squamous Epithelial Cell Urine 0-2 /HPF (0-2); WBC Urine 0-5 /HPF (0-5)
[2023-06-13 00:42] VITALS: BP 108/67; PULSE 64; RESP 16; TEMP 36.7; O2SAT 98
== END 2023-06-13 01:27 | disposition home or self-care (01) ==
PROVIDERS: Emergency Provider Emergency Medicine; PCP Internal Medicine
DX: S39.012A Strain of muscle, fascia and tendon of lower back, initial encounter (principal); X58.XXXA Exposure to other specified factors, initial encounter; R10.9 Unspecified abdominal pain; F17.210 Nicotine dependence, cigarettes, uncomplicated; Y93.9 Activity, unspecified; Y92.9 Unspecified place or not applicable; Y99.9 Unspecified external cause status
CPT/HCPCS: 71046; 72100; 74176; 81001; 81025; 99284

== ENCOUNTER 2023-07-08 13:53 | Outpatient (REF) | payer OTHER, SELFPAY ==
[2023-07-09 12:05] LABS: CT PCR NOT DETECTED (Not Detect.); NG PCR NOT DETECTED (Not Detect.)
[2023-07-09 15:10] LABS: BV Int Neg Control Negative (Negative); BV Int Pos Control Positive (Positive)
[2023-07-10 20:48] LABS: HPV mRNA E6/E7 rflx Not Detected (Not Detected)
== END 2023-07-08 13:54 | disposition home or self-care (01) ==
LOC: HO.LNP 13:53
PROVIDERS: PCP Internal Medicine; Visit Provider Advanced Practice Midwife
DX: Z01.419 Encounter for gynecological examination (general) (routine) without abnormal findings (principal); Z11.51 Encounter for screening for human papillomavirus (HPV); Z20.2 Contact with and (suspected) exposure to infections with a predominantly sexual mode of transmission; F17.200 Nicotine dependence, unspecified, uncomplicated
CPT/HCPCS: 0353U; 87480; 87510; 87624; 87660; 88142

== ENCOUNTER 2023-07-08 13:53 | Outpatient (AMB) | payer OTHER, SELFPAY ==
[2023-07-08 13:57] VITALS: BP 110/70; BMI 20.5
--- NOTE | 2023-07-08 13:57 | MHC.OFFVIS ---
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 She gets normal menses otherwise she has a 16-year-old and an 18-year-old and a ball there boy and a girl and so she had her tubes tied when she was 20 years old and she says both she and her mother signed for and she has no regrets. If she says it was done here by Dr. Horan. She just found out that her partner of 15 years was leading a double life and she just had it confirmed by the other woman 2 months ago. She has been tested for STIs 6 months ago but is open to getting tested again. She is a smoker and is trying to cut down she was smoking a pack a day but lately it has been more like 2 or 3 PFSH Medical History History of asthma Hx of ovarian cyst Surgical History Tubal ligation status Family History Mother Ovarian cancer HTN (hypertension) Father HTN (hypertension) Diabetes mellitus Social History Housing: Apartment Alcohol intake: never Patient Tobacco Use Status: Current everyday Tobacco user Tobacco use type: Cigarette Cigarettes Per Day: 3 e-Cigarette/Vaping Use: Never Used Second Hand Smoke Exposure: No Substance Use Type: Marijuana service: No Current occupational status: employed 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, 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 Current occupational exposures/hazards: No Gender identity: Female Cognitive needs: No Hearing needs: No Vision needs: Yes Female Reproductive History Menstrual Age of Menarche: 16 Date of last menstrual period: 06/29/23 Total pregnancies: 2 Number of Living Children: 2 Date of last pap smear: 01/10/21 (neg) Physical Exam Vital Signs: Last Vital Signs BP 110/70 07/08/23 13:57 BMI result Body Mass Index 20.5 Chest Other: Breasts are bilaterally lumpy on left side there is a chain of rubbery tissue from 02:00 o'clock to 04:00 o'clock in diagonal line On right side there is a cluster of rubbery tissue at a 11:00 to 9:00 Chest/axillae images: 1. Chain of rubbery fibrous lumps 2. Cluster of rubbery fibrous lumps Other: External no lesions obvious other than evidence of shaving and passed follicular irritations. Vagina pink moist cervix parous pink clear with normal appearing mucus and discharge uterus is small markedly retroverted nontender mobile adnexa small nontender no masses nontender good tone with Kegel. Assessment & Plan Assessment & Plan (1) Cervical cancer screening: Comment: ? last pap , neg 2011 pap 01/10/21= neg/ neg HPV Code(s): Z12.4 - Encounter for screening for malignant neoplasm of cervix (2) Well woman exam with routine gynecological exam: Code(s): Z01.419 - Encounter for gynecological examination (general) (routine) without abnormal findings (3) Potential exposure to STD: Code(s): Z20.2 - Contact with and (suspected) exposure to infections with a predominantly sexual mode of transmission (4) Tobacco dependence: Code(s): F17.200 - Nicotine dependence, unspecified, uncomplicated Plan -----Discussed in this visit the following: healthy balanced diet, regular and consistent exercise, getting recommended health screens, doing the best she can for her particular health concerns, kegel exercises, pap smear screening and followup recommendations, mammography screening and SBE, normal changes in cycles in her life stage--- . Discussed that I do not see anything that seems no abnormal today in terms of the lumps that she sometimes has. In her left groin While my best assessment is that she probably has breast tissue that is within the normal range because I cannot be certain I am ordering a mammogram especially as it feels particularly nodular and ropy more so on the left than the right but on both sides. If follow-up is needed mammography will tell her and we will put in a referral. I am going to order blood work so that she can get further STI testing done when she desires. Supported her plans to be safer in the future men to do her best to be safe Discussed smoking cessation-- she is working on it on her own and I encouraged her to keep going and that sometimes in bracing better health can be a good way to feel better after a break-up. Orders: Orders Hepatitis B Surface Antigen Today F17.200 - Nicotine dependence, unspecified, uncomplicated, Z01.419 - Encounter for gynecological examination (general) (routine) without abnormal findings, Z12.4 - Encounter for screening for malignant neoplasm of cervix, Z20.2 - Contact with and (suspected) exposure to infections with a predominantly sexual mode of transmission Hepatitis C Antibody Today F17.200 - Nicotine dependence, unspecified, uncomplicated, Z01.419 - Encounter for gynecological examination (general) (routine) without abnormal findings, Z12.4 - Encounter for screening for malignant neoplasm of cervix, Z20.2 - Contact with and (suspected) exposure to infections with a predominantly sexual mode of transmission HIV Ab/Ag Today F17.200 - Nicotine dependence, unspecified, uncomplicated, Z01.419 - Encounter for gynecological examination (general) (routine) without abnormal findings, Z12.4 - Encounter for screening for malignant neoplasm of cervix, Z20.2 - Contact with and (suspected) exposure to infections with a predominantly sexual mode of transmission Syphilis Screen Today F17.200 - Nicotine dependence, unspecified, uncomplicated, Z01.419 - Encounter for gynecological examination (general) (routine) without abnormal findings, Z12.4 - Encounter for screening for malignant neoplasm of cervix, Z20.2 - Contact with and (suspected) exposure to infections with a predominantly sexual mode of transmission Bacterial Vaginosis Panel Today Z01.419 - Encounter for gynecological examination (general) (routine) without abnormal findings CT NG by PCR Today Z01.419 - Encounter for gynecological examination (general) (routine) without abnormal findings Pap Smear Today Z01.419 - Encounter for gynecological examination (general) (routine) without abnormal findings, Z12.4 - Encounter for screening for malignant neoplasm of cervix Coding Level of Care Code Est Pt Prev Care 18-39y(55119) Diagnoses Cervical cancer screening Z12.4 Well woman exam with routine gynecological exam Z01.419 Potential exposure to STD Z20.2 Tobacco dependence F17.200
== END 2023-07-08 15:01 | disposition home or self-care (01) ==
LOC: HO.HWS 13:53
PROVIDERS: PCP Internal Medicine; Visit Provider Advanced Practice Midwife
DX: Z12.4 Encounter for screening for malignant neoplasm of cervix (principal); Z01.419 Encounter for gynecological examination (general) (routine) without abnormal findings; Z20.2 Contact with and (suspected) exposure to infections with a predominantly sexual mode of transmission; F17.200 Nicotine dependence, unspecified, uncomplicated
CPT/HCPCS: 99395

== ENCOUNTER 2023-08-04 08:44 | Outpatient (AMB) | payer OTHER, SELFPAY ==
--- NOTE | 2023-08-04 08:55 | AM.OFFVISNUR ---
Intake Intake Visit Reasons: TB Allergies ibuprofen [IBUPROFEN] Allergy (Unknown, Verified 07/08/23 13:58) ITCHING, RASH Office Meds tuberculin PPD 5 tub. unit/0.1 mL intradermal injection solution Performing Provider: Kimberly Humphreys MD [facility] Administered by: Thu Garcia RN on 08/04/23 09:03 Dose Route Admin Location Dispensed Lot Number Expiration Date NDC Wire Mill Rover 0.1 mL intradermal 0.1 mL [id number] 09/22/23 38325-627-88 [employer] Coding Assessment & Plan Assessment & Plan Orders: Orders AMB PPD Planted Today Z11.1 - Encounter for screening for respiratory tuberculosis
== END 2023-08-04 09:06 | disposition home or self-care (01) ==
PROVIDERS: PCP Internal Medicine; Visit Provider Internal Medicine
DX: Z11.1 Encounter for screening for respiratory tuberculosis (principal)
CPT/HCPCS: 86580

== ENCOUNTER 2023-09-04 08:21 | Outpatient (REF) | payer OTHER, SELFPAY ==
[2023-09-04 08:40] LABS: MANUAL DIFF FLAG NO
[2023-09-04 09:25] LABS: Basophils Percent Auto 1.1 % (0-2); Eosinophils Absolute Auto 0.3 X10*3/uL (0.0-0.4); Eosinophils Percent Auto 8.1 % (0-4); Hematocrit 37.9 % (37.0-47.0); Hemoglobin 12.4 g/dl (12.0-16.0); Imm Gran Abs Auto 0.01 X10*3/uL (0.00-0.03); Imm Gran Pct Auto 0.3 % (0.0-0.4); Lymphocytes Absolute Auto 1.5 X10*3/uL (1.2-4.9); Lymphocytes Percent Auto 41.1 % (20-40); Mean Corpuscular HGB Conc 32.7 g/dl (31.0-35.0); Mean Corpuscular Hemoglobin 29.4 pg (27.0-33.0); Mean Corpuscular Volume 89.8 fL (80.0-98.0); Mean Platelet Volume 9.9 fL (9.4-12.3); Monocytes Absolute Auto 0.3 X10*3/uL (0.1-1.2); Monocytes Percent Auto 8.9 % (2-11); Neutrophils Absolute Auto 1.5 x10*3/uL (2.0-8.3); Neutrophils Percent Auto 40.5 % (45-73); Platelet Count 309 X10*3/uL (160-400); Red Blood Count 4.22 X10*6/uL (4.20-5.50); Red Cell Distribution Width 13.8 % (11.0-16.0); White Blood Count 3.6 X10*3/uL (4.8-10.8)
[2023-09-04 10:05] LABS: Erythrocyte Sedimentation Rate 7 MM/HR (0-20)
[2023-09-04 10:12] LABS: Rheumatoid Factor < 13.0 IU/mL (<15.0)
[2023-09-04 10:13] LABS: HBsAGNum1 0.34 S/CO (0.00-0.99); HIV AB/AG Nonreactive (Nonreactive); HIV Num 1 0.05 S/CO (0.00-0.99); Hepatitis B Surface Antigen Negative (Negative); ~HepC Num1 0.04 S/CO (0.00-0.79); ~Hepatitis C Antibody Nonreactive (Nonreactive)
[2023-09-04 10:15] LABS: Syphilis Screen Nonreactive (Nonreactive)
[2023-09-04 12:33] LABS: Alanine Aminotransferase 15 U/L (0-31); Albumin Level 4.2 g/dL (3.5-5.0); Alkaline Phosphatase 50 U/L (39-117); Anion Gap 14 (12-20); Aspartate Amino Transferase 14 U/L (5-31); Bilirubin Total 0.3 mg/dL (0.0-1.0); Blood Urea Nitrogen 11 mg/dL (9-16); Calcium 9.2 mg/dL (8.4-10.2); Carbon Dioxide 22 mmol/L (22-29); Chloride 107 mmol/L (96-108); Cholesterol 140 mg/dL (<200); Estimated Glomerular Filt Rate > 60; Glucose Fasting 88 mg/dL (60-99); HDL Cholesterol 55 mg/dL (>40); Iron 38 mcg/dL (30-160); LDL Cholesterol Calculated 77 mg/dL (<100); Percent Iron Saturation 14 % (15-50); Sodium 139 mmol/L (135-145); Total Iron Binding Capacity 280 mcg/dL (228-428); Total Protein 7.3 g/dL (6.5-8.0); Triglycerides 43 mg/dL (<150); Unsaturated Iron Binding 242 ug/dL
[2023-09-09 15:28] LABS: Anti Nuclear Antibody Screen POSITIVE (NEGATIVE)
== END 2023-09-04 08:22 | disposition home or self-care (01) ==
LOC: HO.LAB 08:21
PROVIDERS: PCP Internal Medicine; Visit Provider Advanced Practice Midwife
DX: Z00.00 Encounter for general adult medical examination without abnormal findings (principal); Z20.2 Contact with and (suspected) exposure to infections with a predominantly sexual mode of transmission; F17.200 Nicotine dependence, unspecified, uncomplicated; D64.9 Anemia, unspecified; M54.9 Dorsalgia, unspecified; Z12.4 Encounter for screening for malignant neoplasm of cervix
CPT/HCPCS: 36415; 80053; 80061; 83540; 85025; 85652; 86038; 86039; 86431; 86780; 86803; 87340; 87389

== ENCOUNTER 2023-09-16 10:04 | Outpatient (REF) | payer OTHER, SELFPAY ==
--- NOTE | ~2023-09-16 | MM_ITS ---
EXAMINATION: MM DIAGNOSTIC DIGITAL BREAST TOMOSYNTHESIS, BILATERAL COMPARISON: Mammography: This is a baseline mammogram TECHNIQUE: Digital breast tomosynthesis is performed in both the craniocaudal and mediolateral oblique views along with computer-aided detection (CAD). Synthesized 2D images are generated from the tomosynthesis. Lateral view of the left breast and spot compression of the upper outer quadrant of the left breast, in the area of patient's palpable concern. CLINICAL INFORMATION: Patient presents for evaluation of a palpable lump in the 2:00 position, 12 cm from the right nipple. The patient is referring clinician also reports palpable nodularity in the 2-4 o'clock region of the left breast in the 11-9 o'clock region of the right breast. COMPARISON: Mammography: This is a baseline mammogram TECHNIQUE: Digital breast tomosynthesis is performed in both the craniocaudal and mediolateral oblique views along with computer-aided detection (CAD). Synthesized 2D images are generated from the tomosynthesis. Lateral view of the left breast and spot compression of the upper outer quadrant of the left breast, in the area of patient's palpable concern. FINDINGS: There are scattered areas of fibroglandular density (ACR BI-RADS breast composition Category b). There are no significant masses, abnormal calcifications, or other abnormalities. ULTRASOUND: Technique: Bilateral old breast breast ultrasound was performed. FINDINGS: In the area of patient concern, there is a 5 mm minimally complicated cysts. This is located in the 2:00 position of the left breast, all centimeters from the nipple. This is a benign entity. Sonography of the remainder of the left breast and of the right breast reveals no discrete finding. Clinical follow-up for the areas of patient palpable concern and areas palpated by the referring clinician is advised. MM/MM tomosynthesis diagnostic BI IMPRESSION: No mammographic signs of malignancy. Area of patient palpable concern in the 2:00 position of the left breast reveals a 5 mm minimally complicated benign cyst. Clinical follow-up advised. No sonographic findings to correlate with the areas designated as palpable by the referring clinician. Clinical follow-up of these areas is also advised. ASSESSMENT: BI-RADS BI-RADS 2 - Benign Findings RECOMMENDATION: Mammo at 40 or earlier if clinically needed Focal follow-up of bilateral palpable masses is advised. Results were provided to the patient at time of visit by the technologist. This patient's information was entered into a reminder system with a target due date for their next mammogram.
== END 2023-09-16 10:05 | disposition home or self-care (01) ==
LOC: HO.MAMMO 10:04
PROVIDERS: PCP Internal Medicine; Visit Provider Advanced Practice Midwife
DX: N63.12 Unspecified lump in the right breast, upper inner quadrant (principal); N63.25 Unspecified lump in the left breast, overlapping quadrants
CPT/HCPCS: 76642; 77062; 77066

== ENCOUNTER → 2023-09-16 10:05 | Outpatient (BNV) | payer OTHER, SELFPAY | PROVIDERS: PCP Internal Medicine; Visit Provider Radiology Diagnostic Radiology | DX: R92.323 Mammographic fibroglandular density, bilateral breasts (principal); N60.02 Solitary cyst of left breast | CPT/HCPCS: 76642; 77062; 77066 ==

== ENCOUNTER 2023-11-26 08:31 | Outpatient (AMB) | payer OTHER, SELFPAY ==
[2023-11-26 08:40] VITALS: BP 112/72; BMI 21.6
--- NOTE | 2023-11-26 08:40 | A.OFFVIS_ITS ---
Intake Vital Signs 11/26/23 08:40 Height 5 ft 5 in Weight 129 lb 13.636 oz BMI 21.6 BP 112/72 Blood Pressure Location Rt brachial Position Sitting Intake Visit Reasons: abnormal lab Intake Note: * New pt presents today for +JESI consult, referred by PCP Dr Ozuna. States she believes an aunt has Lupus. * C/o bl shoulder pain, lower back pain. She reports she started having bone pain since getting flu shot months ago. * She has been seen at [facility] and states they always tell her there's nothing wrong. * Stated PCP Dr Ozuna told her she might have fibro. 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 Patient stated that for the last 2 or 3 months she has been having bilateral shoulder pain, worse on the right. It started after receiving the flu shot and pneumonia vaccine in the same right arm. She also has low back pain. She denies any other swollen, painful or tender joints. Denies any fevers. Denies weight loss. Denies skin rashes. Denies any history of DVT/PE. She had 2 pregnancies, 2 children and no abortions or miscarriages. Denies any blood or frothy urine. Denies any history suggestive of Raynaud's. Denies morning stiffness. She stated that she went for physical therapy for her right shoulder and it made her pain worse [facility] Medical History Hx of ovarian cyst History of asthma Surgical History Tubal ligation status Family History Mother Ovarian cancer HTN (hypertension) Father HTN (hypertension) Diabetes mellitus Social History Housing: Apartment Alcohol intake: current Alcohol intake frequency: holidays/special occasions only Patient Tobacco Use Status: Current everyday Tobacco user Tobacco use type: Cigarette Cigarettes Per Day: 3 e-Cigarette/Vaping Use: Never Used Second Hand Smoke Exposure: No Substance Use Type: Marijuana service: No Current occupational status: employed 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, 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 Current occupational exposures/hazards: No Gender identity: Female Cognitive needs: No Hearing needs: No Vision needs: Yes Female Reproductive History Menstrual Age of Menarche: 16 Total pregnancies: 2 Number of Living Children: 2 Review of Systems Const Denies fever(s) and Denies weight loss ENT Details: Denies oral ulcers Card Reports no additional complaints Denies hematuria Musc Reports back pain, Reports arthralgias, Denies joint swelling and Denies stiffness Skin/Breast Denies pruritus, Denies lesions and Denies rash Physical Exam Vital Signs: Last Vital Signs BP 112/72 11/26/23 08:40 BMI result Body Mass Index 21.6 Const General: cooperative, healthy appearing and comfortable Nutritional Appearance: average body habitus Orientation/consciousness: patient oriented x3 Limitations: no limitations HEENT Head: Yes normocephalic and Yes atraumatic Mouth: moist mucous membranes Resp Effort & Inspection: normal respiratory effort and able to speak in complete sentences Auscultation: clear to auscultation bilaterally Cardio Rate: regular rate Rhythm: regular rhythm GI Inspection: No distended Palpation (GI): Soft to palpation and nontender Skin Other: Acne on face Very mild erythematous rash front of right ear Neuro General: patient oriented x3 Extrem Other: No active synovitis Positive rotator cuff provocative maneuvers on the right Normal nailfold capillaroscopy Bilateral lumbar paraspinal muscle tenderness Office Procedures Joint Injection/Drain Joint Injection/Drain Primary Site: right shoulder Prep: site was prepped using sterile technique and ethochloride spray was applied Injected: 40 mg of, Kenalog and other (2 mL of 1% lidocaine) Approach Used: posterolateral Procedure: The patient tolerated the procedure well Coding Details: With the patient's consent the right shoulder was prepped with ChloraPrep and alcohol. Under a topical ethyl chloride spray the right subacromial space was injected with 40 mg of triamcinolone and 2 cc of 1% lidocaine. The patient tolerated the procedure without any acute adverse effects. 16576 - Large joint Procedure code (CPT) selection complete Assessment & Plan Assessment & Plan (1) JESI positive: Code(s): R76.8 - Other specified abnormal immunological findings in serum Plan: This is a 37-year-old female who was referred for evaluation of a positive JESI. This was done in the context of shoulder pain. I do not see any active synovitis on exam. Patient denies rashes, oral ulcers, fevers, weight loss, history of DVT/PE. No history of recurrent miscarriages. My suspicion for autoimmune rheumatic disease is quite low. Discussed with patient symptoms and signs that are suggestive of an underlying autoimmune rheumatic disease and advised patient to return to clinic for any new symptoms (2) Subacromial bursitis of right shoulder joint: Code(s): M75.51 - Bursitis of right shoulder Plan: Patient has symptoms suggestive of rotator cuff tendinopathy on the right. She did PT and it was not helpful. Right shoulder x-rays showed minimal degenerative changes. With patient's consent, right shoulder was injected with Kenalog today Plan I spent 32 minutes reviewing patient's chart, evaluating patient, , counseling patient and documenting in the chart Orders: Orders AMB Joint Injection/Aspiration Today M75.51 - Bursitis of right shoulder Coding Level of Care Code New Pt Level 3 (39392) Diagnoses JESI positive R76.8 Subacromial bursitis of right shoulder joint M75.51 CPT Codes Coding - 23850 Large joint: 20204 - Large joint ([id number])
== END 2023-11-26 09:25 | disposition home or self-care (01) ==
PROVIDERS: PCP Internal Medicine; Visit Provider Student in an Organized Health Care Education/Training Program
DX: R76.8 Other specified abnormal immunological findings in serum (principal); M75.51 Bursitis of right shoulder
CPT/HCPCS: 20610; 99203

== ENCOUNTER → 2023-11-26 08:31 | Outpatient (BNVA) | payer OTHER, SELFPAY | PROVIDERS: PCP Internal Medicine; Visit Provider Student in an Organized Health Care Education/Training Program | DX: M75.51 Bursitis of right shoulder (principal); R76.8 Other specified abnormal immunological findings in serum | CPT/HCPCS: 20610; 99202 ==

== ENCOUNTER 2024-01-06 14:47 | Emergency (ER) | payer OTHER, SELFPAY ==
[2024-01-06 15:19] VITALS: BP 117/60; PULSE 75; RESP 18; TEMP 37; O2SAT 99; BMI 20.5
--- NOTE | 2024-01-06 15:26 | ED_ITS ---
HPI - General Adult General Chief complaint: Vaginal Bleeding Stated complaint: 15 day vaginal bleeding Related Data Home Medications Medication Instructions Recorded Confirmed No Known Home Meds 07/08/23 07/08/23 Allergies Allergy/AdvReac Type Severity Reaction Status Date / Time ibuprofen [IBUPROFEN] Allergy Unknown ITCHING, Verified 01/06/24 15:21 RASH PMFSH Past Medical History Medical History Hx of ovarian cyst History of asthma Surgical History Tubal ligation status Family History Family History Mother Ovarian cancer HTN (hypertension) Father HTN (hypertension) Diabetes mellitus Social History Social History Housing: Apartment Alcohol intake: current Alcohol intake frequency: holidays/special occasions only Patient Tobacco Use Status: Current everyday Tobacco user Tobacco use type: Cigarette Cigarettes Per Day: 3 e-Cigarette/Vaping Use: Never Used Second Hand Smoke Exposure: No Substance Use Type: Marijuana service: No Current occupational status: employed 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, 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 Current occupational exposures/hazards: No Gender identity: Female Cognitive needs: No Hearing needs: No Vision needs: Yes Physical Exam ED Vital Signs: Vital Signs - 24 hr 01/06/24 15:19 Temperature 98.6 F Pulse Rate 75 Respiratory Rate 18 Blood Pressure 117/60 Pulse Oximetry 99 Oxygen Delivery Method Room Air BMI result Body Mass Index 20.5 Course Course Course Narrative: Patient complains of vaginal bleeding for at least a week 5-7 pads a day, she does not feel dizzy or weak Her regular menstruation ended about 2 weeks ago and then unusually for her she develop more bleeding a week later No pain no fever Labs are ordered This is rapid medical exam done in triage pending full ER evaluation Discharge Plan Discharge Prescriptions: No Action No Known Home Meds
[2024-01-06 16:14] LABS: MANUAL DIFF FLAG NO
[2024-01-06 16:18] LABS: Basophils Absolute Auto 0.1 X10*3/uL (0.0-0.2); Eosinophils Absolute Auto 0.2 X10*3/uL (0.0-0.4); Eosinophils Percent Auto 3.6 % (0-4); Hematocrit 36.5 % (37.0-47.0); Hemoglobin 12.2 g/dl (12.0-16.0); Imm Gran Abs Auto 0.01 X10*3/uL (0.00-0.03); Imm Gran Pct Auto 0.2 % (0.0-0.4); Lymphocytes Absolute Auto 1.8 X10*3/uL (1.2-4.9); Lymphocytes Percent Auto 34.3 % (20-40); Mean Corpuscular HGB Conc 33.4 g/dl (31.0-35.0); Mean Corpuscular Hemoglobin 29.1 pg (27.0-33.0); Mean Corpuscular Volume 87.1 fL (80.0-98.0); Mean Platelet Volume 9.5 fL (9.4-12.3); Monocytes Absolute Auto 0.4 X10*3/uL (0.1-1.2); Monocytes Percent Auto 8.4 % (2-11); Neutrophils Absolute Auto 2.8 x10*3/uL (2.0-8.3); Neutrophils Percent Auto 52.5 % (45-73); Platelet Count 329 X10*3/uL (160-400); Red Blood Count 4.19 X10*6/uL (4.20-5.50); Red Cell Distribution Width 13.5 % (11.0-16.0); White Blood Count 5.3 X10*3/uL (4.8-10.8)
[2024-01-06 16:29] LABS: Anion Gap 13 (12-20); Blood Urea Nitrogen 10 mg/dL (9-16); Carbon Dioxide 25 mmol/L (22-29); Chloride 107 mmol/L (96-108); Creatinine Clr Calc Pharmacy 96.3; Estimated Glomerular Filt Rate > 60; Glucose Random 74 mg/dL (60-115); Potassium 3.6 mmol/L (3.3-5.1); Sodium 141 mmol/L (135-145)
--- NOTE | 2024-01-06 19:36 | MHC.EDTECH ---
Patient urine sample collected and sent to lab .
[2024-01-06 19:54] LABS: Appearance Urine Clear; Color Urine Yellow; Glucose Urine UA Negative (Negative); Leukocyte Esterase Urine Negative (Negative); Nitrite Urine Negative (Negative); PH 6.5 (5.0-9.0); Specific Gravity - Urine 1.025 (1.005-1.025); UMIC TRIGGER UACC YES; Urine Blood Moderate (2+) (Negative); Urine Ketones 15 mg/dL (Negative); Urine Protein Negative (Neg-Trace)
[2024-01-06 19:55] LABS: UPreg QC Valid YES; Urine Pregnancy NEGATIVE (NEGATIVE)
[2024-01-06 19:59] LABS: Bacteria Urine None Seen (None Seen); Hyaline Casts Urine 0-2 /LPF (0-2); RBC Urine >20 /HPF (0-2); Squamous Epithelial Cell Urine 0-2 /HPF (0-2); WBC Urine 0-5 /HPF (0-5)
[2024-01-06 21:27] VITALS: BP 116/75; PULSE 82; RESP 18; TEMP 36.8; O2SAT 100
== END 2024-01-06 23:55 | disposition left against medical advice (07) ==
LOC: HO.ED 23:48
PROVIDERS: Physician Assistant Medical; Emergency Provider Emergency Medicine; PCP Internal Medicine
DX: N93.9 Abnormal uterine and vaginal bleeding, unspecified (principal); F17.210 Nicotine dependence, cigarettes, uncomplicated; Z79.899 Other long term (current) drug therapy
CPT/HCPCS: 36415; 80048; 81001; 81025; 85025; 99282; 99283

== ENCOUNTER 2024-04-09 03:25 | Emergency (ER) | payer OTHER, SELFPAY ==
--- NOTE | 2024-04-09 | ECG_ITS ---
Test Reason : CHEST PX Blood Pressure : / mmHG Vent. Rate : 053 BPM Atrial Rate : 053 BPM P-R Int : 130 ms QRS Dur : 072 ms QT Int : 394 ms P-R-T Axes : 032 067 055 degrees QTc Int : 369 ms Sinus bradycardia Minimal voltage criteria for LVH, may be normal variant ( Sokolow-Zheng ) Borderline ECG When compared with ECG of 22-SEP-2021 02:56, Nonspecific T wave abnormality no longer evident in Anterior leads Referred By: Generic ED Physician Electronically Signed By:ELISE PALMA MD
--- NOTE | ~2024-04-09 | CT_ITS ---
EXAMINATION: CT HEAD WITHOUT CONTRAST CLINICAL INFORMATION: Left arm numbness. COMPARISON: None available. TECHNIQUE: Contiguous axial imaging was performed from the skull base to vertex without intravenous administration of contrast. This CT examination was performed using dose optimization techniques as appropriate, variously including the following: *Automated exposure control *Adjustment of mA and/or kV according to patient size (this includes techniques or standardized protocols for targeted exams where dose is matched to indication/reason for exam; i.e. extremities or head) *Use of iterative reconstruction technique DLP: 638 mGy-cm FINDINGS: The lateral, third and fourth ventricles are normally outlined. The cortical sulci and basal cisterns are normally outlined as well. There is no acute territorial defect, hemorrhage or midline shift. The extra-axial spaces are unremarkable. Calvarium: Intact. Maxillofacial sinuses and mastoids: Clear as visualized. CT/CT head/brain wo IV con IMPRESSION: No acute intracranial pathology.
[2024-04-09 03:35] VITALS: BP 101/65; PULSE 50; RESP 18; TEMP 36.9; O2SAT 98; BMI 21.1
[2024-04-09 03:46] LABS: MANUAL DIFF FLAG NO
[2024-04-09 03:47] LABS: Basophils Absolute Auto 0.1 X10*3/uL (0.0-0.2); Basophils Percent Auto 1.1 % (0-2); Eosinophils Absolute Auto 0.4 X10*3/uL (0.0-0.4); Eosinophils Percent Auto 6.5 % (0-4); Hematocrit 34.6 % (37.0-47.0); Hemoglobin 11.8 g/dl (12.0-16.0); Imm Gran Abs Auto 0.01 X10*3/uL (0.00-0.03); Imm Gran Pct Auto 0.2 % (0.0-0.4); Lymphocytes Absolute Auto 2.4 X10*3/uL (1.2-4.9); Mean Corpuscular HGB Conc 34.1 g/dl (31.0-35.0); Mean Corpuscular Hemoglobin 29.3 pg (27.0-33.0); Mean Corpuscular Volume 85.9 fL (80.0-98.0); Mean Platelet Volume 9.2 fL (9.4-12.3); Monocytes Absolute Auto 0.5 X10*3/uL (0.1-1.2); Monocytes Percent Auto 9.8 % (2-11); Neutrophils Absolute Auto 2.1 x10*3/uL (2.0-8.3); Neutrophils Percent Auto 38.4 % (45-73); Platelet Count 288 X10*3/uL (160-400); Red Blood Count 4.03 X10*6/uL (4.20-5.50); Red Cell Distribution Width 13.9 % (11.0-16.0); White Blood Count 5.5 X10*3/uL (4.8-10.8)
[2024-04-09 04:03] LABS: Alanine Aminotransferase 9 U/L (0-31); Albumin Level 4.1 g/dL (3.5-5.0); Alkaline Phosphatase 49 U/L (39-117); Anion Gap 12 (12-20); Aspartate Amino Transferase 13 U/L (5-31); Bilirubin Total 0.2 mg/dL (0.0-1.0); Blood Urea Nitrogen 13 mg/dL (9-16); Carbon Dioxide 22 mmol/L (22-29); Chloride 108 mmol/L (96-108); Creatinine Clr Calc Pharmacy 95.3; Estimated Glomerular Filt Rate > 60; Glucose Random 89 mg/dL (60-115); Potassium 3.5 mmol/L (3.3-5.1); Sodium 138 mmol/L (135-145)
[2024-04-09 04:10] LABS: Troponin-I High Sensitivity < 2.7 ng/L (<3.5-17.0)
--- NOTE | 2024-04-09 05:00 | ED.CHESTPAIN ---
HPI - Chest Pain General Chief Complaint: Chest Pain Stated Complaint: Left arm numbness Time Seen by Provider: 04/09/24 05:01 Source: patient Mode of arrival: ambulatory Limitations: no limitations History of Present Illness HPI narrative: Patient comes to the emergency room complaining of left arm numbness for 3 days. Patient states that since last year when she had her pneumonia shot, she has been having issues with her left arm. Patient states that she can not move her arm completely normal and has no lack of strength. Patient denies any injury. Denies any neck pain. Related Data Home Medications ?Medication ?Instructions ?Recorded ?Confirmed No Known Home Meds 07/08/23 04/15/24 Allergies Allergy/AdvReac Type Severity Reaction Status Date / Time ibuprofen [IBUPROFEN] Allergy Unknown ITCHING, Verified 04/15/24 09:30 RASH Review of Systems Review of Systems: Constitutional : No Weight loss, No Fever, No Chills, No Night Sweats, No Fatigue, No Malaise ENT/Mouth : No Hearing loss, No Ear Pain, No Nasal Congestion, No Sinus Pain, No Hoarseness, No sore throat, No Rhinorrhea, No Swallowing Difficulty Eyes: No Eye Pain, No Swelling, No Redness, No Foreign Body, No Discharge, No Vision Changes Cardiovascular : No Chest Pain, No SOB, No Dyspnea on Exertion, No Orthopnea, No Edema, No Palpitations Respiratory : No Cough, No Sputum, No Wheezing, No Smoke Exposure, No Dyspnea Gastrointestinal : No Nausea, No Vomiting, No Diarrhea, No Constipation, No abdominal Pain, No Hematochezia, No Melena Genitourinary : no irregular bleeding, No Dysuria, No Urinary Frequency, No Hematuria, No Urinary Incontinence, No Urgency, No Flank Pain, No Urinary Flow Changes, No Hesitancy Musculoskeletal : No joint pain, No Myalgias, No Joint Swelling Skin : No Skin Lesions, No rash Neuro : No Weakness, No Numbness, complaining of tingling of the left arm: No Loss of Consciousness, No Dizziness, No Headache Psych : No Anxiety/Panic, No Depression, No SI/HI/AH/VH, No Social Issues, Heme/Lymph: No Bruising, No Bleeding,No Lymphadenopathy Endocrine : No Polyuria, No Polydipsia, No Temperature Intolerance PMFSH Past Medical History Medical History Hx of ovarian cyst History of asthma Surgical History Tubal ligation status Family History Family History Mother Ovarian cancer HTN (hypertension) Father HTN (hypertension) Diabetes mellitus Social History Social History Housing: Apartment Alcohol intake: current Alcohol intake frequency: holidays/special occasions only Patient Tobacco Use Status: Current everyday Tobacco user Tobacco use type: Cigarette Cigarettes Per Day: 10 e-Cigarette/Vaping Use: Never Used Second Hand Smoke Exposure: No Substance Use Type: Marijuana service: No Current occupational status: employed 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 Oriented X3. No acute distress. Eyes: Pupils equal, round and reactive to light. ENT: Pharynx normal. Neck: Normal inspection. Neck supple. No lymph nodes noted. No crepitus CVS: Normal heart rate and rhythm. Pulses normal. Normal S1 and S2 Respiratory: No respiratory distress. Breath sounds normal. No Wheezing. No rales Abdomen: Soft and nontender. No rigidity. No distention. Skin: Skin warm and dry. Normal skin color. Normal skin turgor. Extremities: No lower extremity edema. No Lacerations. No Rash. No muscle wasting, no rash, normal range of motion, pain with arm abduction, 5/5 strength bilaterally Neuro: Oriented X 3. No motor deficit. No sensory deficit. Moving all extremities. No slurred speech. CN 2 through 12 grossly intact Psych: calm, cooperative, normal affect NIH Stroke Scale Level of Consciousness: Alert Level of Consciousness Questions: Answers both questions correctly Level of Consciousness Commands: Performs both tasks correctly Best Gaze: Normal Visual: No visual loss Facial Palsy: Normal Motor Arm (Right): No drift Motor Arm (Left): No drift Motor Leg (Right): No drift Motor Leg (Left): No drift Limb Ataxia: Absent Sensory: Normal Best Language: No aphasia Dysarthia: Normal Extinction and Inattention: No abnormality Score: 0 Medical Decision Making Medical Decision Making [facility] Narrative: -patient has been symptomatic for 3 days. -patient's labs are unremarkable. Troponin negative, -my interpretation EKG: Normal sinus rhythm, heart rate 53, no ST segment depression or elevation, no T-wave inversion, QTC 369 -I have reviewed patient's past medical records. Patient has had multiple visits for orthopedic pain. Patient also has been seen by rheumatology, has tested positive for JESI -patient denies any chest pain. 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 Differential Diagnosis Differential Diagnoses: The differential diagnosis associated with the presentation includes (CVA, TIA, cervical radiculopathy, paresthesias) Lab Data [facility] Lab Attestation statement: I reviewed the patient's lab results. 04/09/24 03:41 04/09/24 03:41 Labs: Lab Results 04/09/24 Range/Units 03:41 WBC 5.5 (4.8-10.8) X10*3/uL RBC 4.03 L (4.20-5.50) X10*6/uL Hgb 11.8 L (12.0-16.0) g/dl Hct 34.6 L (37.0-47.0) % MCV 85.9 (80.0-98.0) fL MCH 29.3 (27.0-33.0) pg MCHC 34.1 (31.0-35.0) g/dl RDW 13.9 (11.0-16.0) % Plt Count 288 (160-400) X10*3/uL MPV 9.2 L (9.4-12.3) fL Immature Gran % (Auto) 0.2 (0.0-0.4) % Neut % (Auto) 38.4 L (45-73) % Lymph % (Auto) 44.0 H (20-40) % [place] % (Auto) 9.8 (2-11) % Eos % (Auto) 6.5 H (0-4) % Baso % (Auto) 1.1 (0-2) % Lymph # (Auto) 2.4 (1.2-4.9) X10*3/uL [place] # (Auto) 0.5 (0.1-1.2) X10*3/uL Eos # (Auto) 0.4 (0.0-0.4) X10*3/uL Baso # (Auto) 0.1 (0.0-0.2) X10*3/uL Abs Immat Gran (auto) 0.01 (0.00-0.03) X10*3/uL Absolute Neuts (auto) 2.1 (2.0-8.3) x10*3/uL Absolute Nucleated RBC 0.000 (0.0-0.012) X10*3/uL Nucleated RBC % (auto) 0.0 (0.0-0.2) /100WBC Sodium 138 (135-145) mmol/L Potassium 3.5 (3.3-5.1) mmol/L Chloride 108 (96-108) mmol/L Carbon Dioxide 22 (22-29) mmol/L Anion Gap 12 (12-20) BUN 13 (9-16) mg/dL Creatinine 0.72 (0.5-1.4) mg/dL Estim Creat Clear Calc 95.3 Estimated GFR > 60 Random Glucose 89 (60-115) mg/dL Calcium 9.0 (8.4-10.2) mg/dL Total Bilirubin 0.2 (0.0-1.0) mg/dL AST 13 (5-31) U/L ALT 9 (0-31) U/L Alkaline Phosphatase 49 (39-117) U/L Troponin I High Sens < 2.7 (<3.5-17.0) ng/L Total Protein 7.0 (6.5-8.0) g/dL Albumin 4.1 (3.5-5.0) g/dL Independent Interpretation I performed an independent interpretation of an: CT Scan Radiology Impression Discussion of test interpretation with radiology: I have reviewed the radiologist's reading. Radiologist Impression: FINDINGS: The lateral, third and fourth ventricles are normally outlined. The cortical sulci and basal cisterns are normally outlined as well. There is no acute territorial defect, hemorrhage or midline shift. The extra-axial spaces are unremarkable. Calvarium: Intact. Maxillofacial sinuses and mastoids: Clear as visualized. CT/CT head/brain wo IV con IMPRESSION: No acute intracranial pathology. Discharge Plan Discharge Clinical Impression: Paresthesia Patient Disposition: Home, Self-Care Instructions: Paresthesia (ED) Additional Instructions: Please follow-up with your primary care physician tomorrow. If you have any worsening or new symptoms, please return to the emergency room or call 911 Prescriptions: No Action No Known Home Meds Interventions: ED Discharge Assessment Last Done: 04/09/24 06:36 Discharge Date/Time: 04/09/24 06:40 Print Language: Cymraes
[2024-04-09 06:08] VITALS: BP 112/36; PULSE 72; RESP 17; TEMP 36.6; O2SAT 97
[2024-04-09 06:36] VITALS: BP 112/36; PULSE 72; RESP 17; TEMP 36.6; O2SAT 97
== END 2024-04-09 06:40 | disposition home or self-care (01) ==
PROVIDERS: Emergency Provider Emergency Medicine; PCP Internal Medicine
DX: R20.2 Paresthesia of skin (principal); R20.0 Anesthesia of skin
CPT/HCPCS: 36415; 70450; 80053; 84484; 85025; 93005; 99284; 99285

== ENCOUNTER → 2024-04-09 03:31 | Outpatient (BNV) | payer OTHER, SELFPAY | PROVIDERS: Emergency Provider Emergency Medicine; PCP Internal Medicine; Visit Provider Internal Medicine Cardiovascular Disease | DX: R00.1 Bradycardia, unspecified (principal) | CPT/HCPCS: 93010 ==

== ENCOUNTER 2024-04-15 08:58 | Outpatient (AMB) | payer OTHER, SELFPAY ==
--- NOTE | 2024-04-15 08:59 | A.OFFPC_ITS ---
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 Accompanied by: Self / Same As Patient Allergies ibuprofen [IBUPROFEN] Allergy (Unknown, Verified 04/15/24 09:30) ITCHING, RASH Medication List - Last Reconciled 04/15/24 by Kimberly Humphreys MD No Known Home Meds Tobacco use date assessed: 04/15/24 Dental Screening Dental Screen Date: 04/15/24 Did you have a dental visit in the last 12 months?: Yes Did you have a dental problem in the last 6 months where you did not have access to dental care?: No Was dental information given to patient?: Patient has dentist HPI HPI Comments History of Present Illness Details This is a 38-year-old female that comes for her physical exam. Last Pap smear was 2022 and was normal. Complains of diffuse joint pain and has a positive KIMBERLY and I will refer her to [facility]umat[facility]. No chest pain or shortness a breath. No change in bowel or bladder habits. She has a smoker and was advised to quit. Advised to call [phone] quit now and to reach quit works. [facility] Medical History Hx of ovarian cyst History of asthma Surgical History Tubal ligation status Family History Mother Ovarian cancer HTN (hypertension) Father HTN (hypertension) Diabetes mellitus Social History Housing: Apartment Alcohol intake: current Alcohol intake frequency: holidays/special occasions only Patient Tobacco Use Status: Current everyday Tobacco user Tobacco use type: Cigarette Cigarettes Per Day: 10 e-Cigarette/Vaping Use: Never Used Second Hand Smoke Exposure: No Substance Use Type: Marijuana service: No Current occupational status: employed 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 1. Little interest or pleasure in doing things: not at all 2. Feeling down, depressed, or hopeless: not at all 3. Trouble falling or staying asleep, or sleeping too much: not at all 4. Feeling tired or having little energy: not at all 5. Poor appetite or overeating: not at all 6. Feeling bad about yourself - or that you are a failure or have let yourself or your family down: not at all 7. Trouble concentrating on things, such as reading the newspaper or watching television: not at all 8. Moving or speaking so slowly that other people could have noticed. Or the opposite - being so fidgety or restless that you have been moving around a lot more than usual: not at all 9. Thoughts that you would be better off or of hurting yourself in some way: not at all Total score: 0 Depression Screening Interpretation: Negative Depression Screening Done: Yes 37005 - PHQ-9 Billing: Yes Source: Developed by Drs. Amos Maria, Edna Hernandez, Meño Alexander and colleagues, with an educational bhavik from [employer]. Thrive Questionnaire Date Thrive assessed: 04/15/24 I am a: Patient What is your living situation today?: I have a steady place to live Within the past 12 months, did the food you bought not last and you didn't have the money to get more?: Never true Within the past 12 months, did you worry whether your food would run out before you got money to buy more?: Never true Do you have trouble paying for medicines?: No Do you have trouble getting transportation to medical appointments?: No Do you have trouble paying your heating and electricity bill?: No Do you have trouble taking care of your child, family member or friend?: No Do you have trouble with day-to-day activities such as bathing, preparing meals, shopping, managing finances, etc.?: No Are you currently unemployed and looking for a job?: No Are you interested in more education?: No Please select the resources that you would like help with: None Currently or been in a relationship where the following occur: no concerns reported THRIVE Score: 0 AUDIT C Alcohol Use Questionnaire (AUDIT-C) 1. How often do you have a drink containing alcohol?: Monthly or less 2. How many drinks containing alcohol do you have on a typical day when you are drinking?: 1 or 2 3. How often do you have six or more drinks on one occasion?: Never Total Score: 1 Score Reviewed/Action Taken: No CLINTON-7 AMB Questionnaire CLINTON-7 Date CLINTON - 7 assessed: 04/15/24 Feeling nervous, anxious, or on edge: 0 = Not at all Not being able to stop or control worryin = Not at all Worrying too much about different things: 0 = Not at all Trouble relaxin = Not at all Being so restless that it is hard to sit still: 0 = Not at all Becoming easily annoyed or irritable: 0 = Not at all Feeling afraid as if something awful might happen: 0 = Not at all Total CLINTON-7 score (0-4 normal; 5-9 mild; 10-14 moderate; 15-21 severe): 0 Source: Developed by Drs. Amos Maria, Edna Hernandez, Meño Alexander and colleagues, with an educational bhavik from [employer]. CLINTON-7 Assessment Billing CLINTON-7 Assessment Tool: CLINTON-7 Assessment 78100 Review of Systems Const All systems reviewed & are unremarkable except as noted in HPI and below Eyes Reports no additional complaints, Denies change in vision and Denies other visual disturbances Card Denies chest pain at rest, Denies chest pain with activity, Denies edema, Denies irregular heart rhythm, Denies claudication, Denies dyspnea, Denies dyspnea on exertion, Denies orthopnea, Denies paroxysmal nocturnal dyspnea and Denies slow heart rate Resp Denies cough, Denies dyspnea and Denies dyspnea on exertion Musc Reports arthralgias Physical exam (Primary Care) Vital Signs: Last Vital Signs BP 102/70 04/15/24 09:02 BMI result Body Mass Index 20.8 Tobacco/Smoking Status: Tobacco use Status Tobacco use date assessed 04/15/24 04/15/24 09:05 Patient Tobacco Use Status Current everyday Tobacco 04/15/24 09:05 Tobacco use type Cigarette 04/15/24 09:05 e-Cigarette/Vaping Use Never Used 04/15/24 09:05 Are you ready to quit: Yes Tobacco cessation counseling provided: Yes Items discussed: QuitWorks Relapse Prevention: discussed the importance of a supportive environment, discussed extending NRT, discussed negative mood or depression after quitting, weight gain after smoking is common and discussed dietary, exercise and/or lifestyle changes Number of minutes spent counselin CPT code: 35080 - 4-10 Minutes PHQ-9: PHQ-9 Score PHQ-9: Total score 0 04/15/24 09:05 Depression Screening Interpretation: Negative Thrive Assessment: Date of Thrive Assessment Date Thrive assessed 04/15/24 04/15/24 09:05 Currently or been in a relationship where the following occur: no concerns re ported Const Orientation/consciousness: patient oriented x3 HENMT Head: Yes normal to inspection, Yes normocephalic and Yes atraumatic Ears: external ears normal Eyes General: appearance normal, both eyes and all related structures Eyelids: Yes eyelids normal Conjunctivae: conjunctivae normal Neck Neck: Yes normal visual inspection and Yes supple Resp Effort & Inspection: normal respiratory effort Auscultation: clear to auscultation bilaterally Cardio Jugular venous distension: no JVD Rate: regular rate Rhythm: regular rhythm Heart sounds: S1 normal heart sound present and S2 normal heart sound present GI Inspection: Yes normal to inspection Palpation (GI): Soft to palpation and nontender Auscultation: normal bowel sounds Skin General skin exam: no rashes or lesions noted Neuro General: patient oriented x3 and no focal motor deficits Extrem General: Yes full ROM Psych Appearance: grossly normal Assessment and Plan Assessment & Plan (1) Annual physical exam: Code(s): Z00.00 - Encounter for general adult medical examination without abnormal findings Plan: Repeat in a year. Orders: Referrals Rheumatology Referral M25.50 - Pain in unspecified joint Coding Level of Care Code Est Pt Prev Care 18-39y(68736) Diagnoses Annual physical exam Z00.00 Additional Codes CLINTON-7 Assessment Billing - CLINTON-7 Assessment Tool: CLINTON-7 Assessment 81101 ([id number]) Vital Signs *Quality* - CPT code: 79351 - 4-10 Minutes ([id number]) Time Spent (min) 34
[2024-04-15 09:02] VITALS: BP 102/70; BMI 20.8
== END 2024-04-15 09:42 | disposition home or self-care (01) ==
PROVIDERS: Visit Provider Internal Medicine
DX: Z00.00 Encounter for general adult medical examination without abnormal findings (principal); F17.210 Nicotine dependence, cigarettes, uncomplicated
CPT/HCPCS: 99395; 99406

== ENCOUNTER 2024-07-28 19:40 | Emergency (ER) | payer OTHER, SELFPAY ==
[2024-07-28 20:23] VITALS: BP 140/78; PULSE 70; RESP 20; TEMP 36.4; O2SAT 100; BMI 21.1
[2024-07-28 22:29] VITALS: BP 108/71; PULSE 57; RESP 16; TEMP 36.9; O2SAT 99
--- NOTE | 2024-07-28 23:01 | ED.EXTPRO ---
HPI - Extremity Problem General Chief complaint: Extremity Problem Stated complaint: back and arm pain Time Seen by Provider: 07/28/24 22:53 Source: patient Mode of arrival: ambulatory Limitations: no limitations History of Present Illness ED Provider: Dr. Nani Baez HPI Narrative: Patient comes to the emergency room complaining of right-sided shoulder pain and back pain. Patient states that the pain started since she got her pneumonia shot. Patient states that she has been seen multiple times by her primary care physician's, emergency rooms in the never give her a diagnosis. Patient was referred by her primary care physician to rheumatology. Patient has no new symptoms. Denies numbness tingling in the upper extremities, no trauma. Related Data Home Medications ?Medication ?Instructions ?Recorded ?Confirmed No Known Home Meds 07/08/23 04/15/24 Allergies Allergy/AdvReac Type Severity Reaction Status Date / Time ibuprofen [IBUPROFEN] Allergy Unknown ITCHING, Verified 07/28/24 20:25 RASH Review of Systems Review of Systems: Constitutional : No Weight loss, No Fever, No Chills, No Night Sweats, No Fatigue, No Malaise ENT/Mouth : No Hearing loss, No Ear Pain, No Nasal Congestion, No Sinus Pain, No Hoarseness, No sore throat, No Rhinorrhea, No Swallowing Difficulty Eyes: No Eye Pain, No Swelling, No Redness, No Foreign Body, No Discharge, No Vision Changes Cardiovascular : No Chest Pain, No SOB, No Dyspnea on Exertion, No Orthopnea, No Edema, No Palpitations Respiratory : No Cough, No Sputum, No Wheezing, No Smoke Exposure, No Dyspnea Gastrointestinal : No Nausea, No Vomiting, No Diarrhea, No Constipation, No abdominal Pain, No Hematochezia, No Melena Genitourinary : no irregular bleeding, No Dysuria, No Urinary Frequency, No Hematuria, No Urinary Incontinence, No Urgency, No Flank Pain, No Urinary Flow Changes, No Hesitancy Musculoskeletal : Complaining of right shoulder pain, right upper arm pain, right upper back pain Skin : No Skin Lesions, No rash Neuro : No Weakness, No Numbness, No Paresthesias, No Loss of Consciousness, No Dizziness, No Headache Psych : No Anxiety/Panic, No Depression, No SI/HI/AH/VH, No Social Issues, Heme/Lymph: No Bruising, No Bleeding,No Lymphadenopathy Endocrine : No Polyuria, No Polydipsia, No Temperature Intolerance PMFSH Past Medical History Medical History Hx of ovarian cyst History of asthma Surgical History Tubal ligation status Family History Family History Mother Ovarian cancer HTN (hypertension) Father HTN (hypertension) Diabetes mellitus Social History Social History Housing: Apartment Alcohol intake: current Alcohol intake frequency: holidays/special occasions only Patient Tobacco Use Status: Current everyday Tobacco user Tobacco use type: Cigarette Cigarettes Per Day: 10 e-Cigarette/Vaping Use: Never Used Second Hand Smoke Exposure: No Substance Use Type: Marijuana Advance Directives: No Advance Directives Information Provided: No service: No Current occupational status: employed 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 Oriented X3. No acute distress. Eyes: Pupils equal, round and reactive to light. ENT: Pharynx normal. Neck: Normal inspection. Neck supple. No lymph nodes noted. No crepitus CVS: Normal heart rate and rhythm. Pulses normal. Normal S1 and S2 Respiratory: No respiratory distress. Breath sounds normal. No Wheezing. No rales Abdomen: Soft and nontender. No rigidity. No distention. Skin: Skin warm and dry. Normal skin color. Normal skin turgor. Extremities: No lower extremity edema. No Lacerations. No Rash Neuro: Oriented X 3. No motor deficit. No sensory deficit. Moving all extremities. No slurred speech. CN 2 through 12 grossly intact Psych: calm, cooperative, normal affect Medical Decision Making Medical Decision Making MDM Narrative: patient's physical exam does not show any obvious abnormality, patient has normal strength, normal range of motion. No obvious deformities. - in today's visit, she has no acute symptoms. - I reviewed patient's chart. Patient has been complaining of the same issue since at least 2020 Including multiple ER visits per her PCP's note and PCP visits - I discussed with the patient that her PCP can refer her again to dermatology versus neurology where they can do electromyography. - patient states that she has been seen by Neurology, Rheumatology, Orthopedics for the same issue, And still gets no clear answer. - I discussed with the patient she needs to follow-up with her primary care physician. It may be worth sending the patient to the pain clinic. - Patient upset, states that she wants an answer at this time. Discussed with the patient that for chronic pain that has been present for years she needs a more thorough workup that we do not do in the emergency room . I discussed with the patient that in the emergency room, we determine if the condition is emergent and needs immediate treatment and stabilization. Chronic and stable conditions can be followed up by specialist. Discharge Plan Discharge Clinical Impression: Chronic pain Patient Disposition: Home, Self-Care Instructions: Chronic Pain (ED) Additional Instructions: Please follow-up with your primary care physician tomorrow. If you have any worsening or new symptoms, please return to the emergency room or call 911 Prescriptions: No Action No Known Home Meds Print Language: Tamazight
[2024-07-28 23:18] VITALS: BP 108/71; PULSE 57; RESP 16; TEMP 36.9; O2SAT 99
== END 2024-07-28 23:19 | disposition home or self-care (01) ==
PROVIDERS: Emergency Provider Emergency Medicine; PCP Internal Medicine
DX: G89.29 Other chronic pain (principal); M25.511 Pain in right shoulder; M54.9 Dorsalgia, unspecified
CPT/HCPCS: 99282; 99283

== ENCOUNTER 2025-05-07 08:33 | Emergency (ER) | payer OTHER, SELFPAY ==
--- NOTE | ~2025-05-07 | XR_ITS ---
CLINICAL HISTORY: cough, fever Chest radiograph, 1 view Comparison: None Findings: The cardiomediastinal silhouette is not enlarged. Pulmonary vascularity is unremarkable. No focal consolidation or effusion. No pneumothorax. IMPRESSION: No acute cardiopulmonary findings. This document has been electronically signed by: Alejo Blanco DO on 05/07/2025 10:28:57
[2025-05-07 08:41] VITALS: BP 106/59; PULSE 93; RESP 16; TEMP 39.2; O2SAT 100; BMI 22.2
[2025-05-07] MEDS: Acetaminophen 325 MG TABLET 975 MG PO (08:48)
[2025-05-07 09:19] LABS: IDNOW Serial# 55D5AD1C; Strep A Nucleic Acid Negative (Negative)
--- NOTE | 2025-05-07 09:19 | ED.FEVER ---
HPI - Fever General Chief Complaint: Fever Stated Complaint: flu symptoms Time Seen by Provider: 05/07/25 08:56 Source: patient and old records reviewed Mode of arrival: ambulatory Limitations: no limitations History of Present Illness ED Provider: LEONIE HWANG Narrative: 39 yo female with PMH of ovarian cyst here with c/o fevers, runny nose, sore throat - x 1 day. NO travel, sick contacts. She has not had n/v. She has no rash. She is taking OTC meds with little help. Denies tick bites. MD elicited complaint: fever, malaise and weakness Onset (ago): day(s) (1) Exacerbating factors: nothing Relieving factors: acetaminophen, ibuprofen and cold medicine Associated symptoms: chills, headache, rhinorrhea, nasal congestion and sore throat Treatments prior to arrival fever: acetaminophen, ibuprofen and cold medicine Related Data Home Medications ?Medication ?Instructions ?Recorded ?Confirmed No Known Home Meds 07/08/23 04/15/24 Allergies Allergy/AdvReac Type Severity Reaction Status Date / Time ibuprofen [IBUPROFEN] Allergy Unknown ITCHING, Verified 05/07/25 08:44 RASH Review of Systems Review of Systems: Constitutional : positive Fever, positive Chills, positive fatigue, positive Malaise ENT/Mouth : positive sore throat, positive runny nose Eyes: No Discharge Cardiovascular : No Chest Pain, No SOB Respiratory : No Cough, No Sputum Gastrointestinal : No Nausea, No Vomiting, No Diarrhea Genitourinary : No Dysuria, No Urinary Frequency Musculoskeletal : positive Myalgia Skin : No rash Neuro : No Headache all other systems reviewed and are negative [facility], [facility] Past Medical History Attestation statement: The following information was validated with the patient. Source: old records reviewed Medical History (Updated 05/07/25 @ 10:25 by Ml Mcgee DO) Hx of ovarian cyst Surgical History Tubal ligation status Family History Family History Mother Ovarian cancer HTN (hypertension) Father HTN (hypertension) Diabetes mellitus Social History Social History Housing: Apartment Alcohol intake: current Alcohol intake frequency: holidays/special occasions only Patient Tobacco Use Status: Current everyday Tobacco user Tobacco use type: Cigarette Cigarettes Per Day: 10 Smoked in Last 30 Days: No e-Cigarette/Vaping Use: Never Used Second Hand Smoke Exposure: No Use of substances other than those prescribed or required for medical reasons: No Substance Use Type: Marijuana Advance Directives: No Advance Directives Information Provided: Yes Patient : No service: No Current occupational status: employed 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 Oriented X3. No acute distress. Eyes: Pupils equal, round and reactive to light. ENT: Pharynx mild erythema mild swelling no exudates, TMs normal bilaterally Neck: Normal inspection. Neck supple. CVS: Normal heart rate and rhythm. Pulses normal. Respiratory: No respiratory distress. Breath sounds normal. Abdomen: Soft and nontender. Skin: Skin warm and dry. Normal skin color. Normal skin turgor. Extremities: No lower extremity edema. No calf ttp Neuro: Oriented X 3. No motor deficit. No sensory deficit. CN2-12 intact Medications Administered Discontinued Medications Generic Name Dose Route Start Last Admin Trade Name Freq PRN Reason Stop Dose Admin Acetaminophen 975 mg 05/07/25 08:45 05/07/25 08:48 Acetaminophen 325 Mg Tablet PO 05/07/25 08:46 975 mg ONCE ONE Administration Medical Decision Making Medical Decision Making MDM Narrative: 39 yo female with PMH of ovarian cyst who presents with c/o sore throat, runny nose and fevers - no sick contacts, no travel, she is taking PRN meds OTC at this time not toxic, clear lungs will give tylenol and obtain strep swab, viral panel. Denies possibility of tick bite/exposure Differential Diagnosis Differential Diagnoses: The differential diagnosis associated with the presentation includes viral syndrome, strep (less likely) Admission/Observation Consideration of admission/observation: Escalation of care including admission/observation considered negative workup at this time stable for DC Lab Data MDM Lab Attestation statement: I reviewed the patient's lab results. Labs: Lab Results 05/07/25 Range/Units 09:02 Influenza Type A (PCR) NEGATIVE (Negative) Influenza Type B (PCR) NEGATIVE (Negative) RSV RNA Qual (PCR) NEGATIVE (Negative) SARS-CoV-2 RNA (RT-PCR) NEGATIVE (Negative) S. pyogenes GrpA DEJAN Negative (Negative) Independent Interpretation I performed an independent interpretation of an: Plain X-Ray (no pneumonia) Radiology Impression Discussion of test interpretation with radiology: I have reviewed the radiologist's reading. External Record Review External record reviewed: Outpatient record Prescription Management I considered prescription management with: Other Discharge Plan Discharge Clinical Impression: Viral infection Patient Disposition: Home, Self-Care Instructions: Viral Syndrome (ED) Additional Instructions: negative for covid, flu, rsv, strep throat chest xray normal please continue to alternate tylenol 650mg every 4 to 6 hours for fever/pain no more than 3,000mg a day ibuprofen 600mg every 6 hours as needed for pain please rest and stay hydrated return for worsening symptoms or concerns. Prescriptions: No Action No Known Home Meds Stand Alone Forms: Work/School Release Print Language: Burundian
[2025-05-07 09:46] LABS: Influenza A PCR NEGATIVE (Negative); Influenza B PCR NEGATIVE (Negative); Resp Syncy Virus RNA Qual PCR NEGATIVE (Negative); SARS COV2 PCR INHOUSE NEGATIVE (Negative)
[2025-05-07 10:37] VITALS: BP 110/76; PULSE 64; RESP 18; TEMP 36.9; O2SAT 99
[2025-05-07 10:38] VITALS: BP 110/76; PULSE 64; RESP 18; TEMP 36.9; O2SAT 99
== END 2025-05-07 10:39 | disposition home or self-care (01) ==
PROVIDERS: Emergency Provider Emergency Medicine; PCP Internal Medicine
DX: B34.9 Viral infection, unspecified (principal); R50.9 Fever, unspecified; Z03.818 Encounter for observation for suspected exposure to other biological agents ruled out; J02.9 Acute pharyngitis, unspecified; R05.9 Cough, unspecified; F17.210 Nicotine dependence, cigarettes, uncomplicated
CPT/HCPCS: 0241U; 71045; 87651; 99283; 99284

== ENCOUNTER → 2025-05-07 09:54 | Outpatient (BNV) | payer OTHER, SELFPAY | PROVIDERS: Emergency Provider Emergency Medicine; PCP Internal Medicine; Visit Provider Radiology Diagnostic Radiology | DX: R05.9 Cough, unspecified (principal); R50.9 Fever, unspecified | CPT/HCPCS: 71045 ==

== ENCOUNTER 2025-05-08 19:40 | Emergency (ER) | payer OTHER, SELFPAY ==
--- NOTE | 2025-05-08 | ECG_ITS ---
Test Reason : CP Blood Pressure : */* mmHG Vent. Rate : 89 BPM Atrial Rate : 89 BPM P-R Int : 126 ms QRS Dur : 64 ms QT Int : 336 ms P-R-T Axes : 67 38 41 degrees QTcB Int : 408 ms Normal sinus rhythm Normal ECG When compared with ECG of 09-Apr-2024 03:31, Vent. rate has increased by 36 bpm Nonspecific T wave abnormality now evident in Lateral leads Referred By: Generic ED Physician Electronically Signed By: Bryce Cleveland
--- NOTE | ~2025-05-08 | XR_ITS ---
CLINICAL HISTORY: CP 2 view chest x-ray Comparison: CR - XR CHEST 1V - 05/07/25 09:52 EDT Findings: No consolidation or effusion. Heart size is normal. No acute fracture. IMPRESSION: 1. No acute findings. This document has been electronically signed by: Tiana Eubanks MD on 05/08/2025 20:50:51
--- NOTE | 2025-05-08 20:07 | ED_ITS ---
HPI - Chest Pain General Chief Complaint: Upper Respiratory Symptoms Stated Complaint: chest pain/fevers/sob/here 05/07/25 Time Seen by Provider: 05/08/25 21:14 Source: patient Mode of arrival: ambulatory Limitations: no limitations History of Present Illness ED Provider: HPI narrative: Patient's history of asthma been coughing lately for last 3 days with low-grade fever cough is mostly dry does have chills no chest pain no other family member sick Related Data Previous Rx's ?Medication ?Instructions ?Recorded albuterol sulfate 90 mcg/actuation 2 puff inhalation Q 6H PRN 05/08/25 aerosol inhaler shortness of breath or wheez ing #8.5 grams azithromycin 250 mg tablet 250 mg PO DAILY 4 days #4 t abs 05/08/25 (Zithromax) benzonatate 200 mg capsule 200 mg PO TID PRN cough #20 caps 05/08/25 prednisone 20 mg tablet 40 mg (2 x 20 mg) PO DAILY # 10 tabs 05/08/25 naproxen 500 mg tablet (Naprosyn) 500 mg PO BID 5 days #10 tabs 05/13/25 Allergies Allergy/AdvReac Type Severity Reaction Status Date / Time ibuprofen (IBUPROFEN) Allergy Unknown ITCHING, Verified 05/13/25 11:48 RASH Review of Systems 2 Review of Systems: Yes all other systems are reviewed and are negative PMFSH Past Medical History Medical History Hx of ovarian cyst Surgical History Tubal ligation status Family History Family History Mother Ovarian cancer HTN (hypertension) Father HTN (hypertension) Diabetes mellitus Social History Social History Housing: Apartment Alcohol intake: current Alcohol intake frequency: holidays/special occasions only Patient Tobacco Use Status: Current everyday Tobacco user Tobacco use type: Cigarette Cigarettes Per Day: 10 e-Cigarette/Vaping Use: Never Used Second Hand Smoke Exposure: No Use of substances other than those prescribed or required for medical reasons: No Substance Use Type: Marijuana Advance Directives: No Advance Directives Information Provided: Yes Do you have a plan to hurt others: No Plan Patient : No service: No Current occupational status: employed 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 Oriented X3. No acute distress. Eyes: No pallor ENT: Pharynx normal. Oral Mucosa moist Neck: Normal inspection. Neck supple. CVS: Normal heart rate and rhythm. Pulses normal. Respiratory: No respiratory distress. Equal air entry bilateral, bilateral prolonged expiration with frequent cough Abdomen: Soft and nontender. Bowel sounds are present, no mass palpable, no CVA tenderness Skin: Skin warm and dry. Normal skin color. Normal skin turgor. Extremities: No lower extremity edema. No calf tenderness Neuro: Oriented X 3. No motor deficit. Course Course Course Narrative: Frances Frost APRN This is a rapid medical exam. Deferred additional HPI, ROS, PE to primary provider. 39 yo female here with fever max temp 103, chills, shortness of breath, cough, rhinorrhea x 2-3 days. Developed chest pain today. Seen here 05/07 with negative viral test, CXR Will obtain labs, EKG, CXR, viral test Took 2 tablets 325mg tylenol at 630pm Will give additional 325mg in triage Medications Administered Discontinued Medications Generic Name Dose Route Start Last Admin Trade Name Freq PRN Reason Stop Dose Admin Acetaminophen 325 mg 05/08/25 20:11 05/08/25 20:16 Acetaminophen 325 Mg Tablet PO 05/08/25 20:12 325 mg ONCE ONE Administration Albuterol Sulfate 2 puff 05/08/25 21:27 05/08/25 21:53 Albuterol Sulfate 90 Mcg 8 Gm Inhaler INHALE 05/08/25 21:28 2 puff ONCE ONE Administration Azithromycin 500 mg 05/08/25 21:27 05/08/25 21:53 Azithromycin 500 Mg Tablet PO 05/08/25 21:28 500 mg ONCE ONE Administration Prednisone 40 mg 05/08/25 21:27 05/08/25 21:53 Prednisone 20 Mg Tablet PO 05/08/25 21:28 40 mg ONCE ONE Administration Medical Decision Making Medical Decision Making [facility] Narrative: Patient's asthma bronchitis improved after nebulizing treatment discharge patient home on antibiotics and prednisone Lab Data [facility] Lab Attestation statement: I reviewed the patient's lab results. 05/08/25 20:20 05/08/25 20:20 Labs: Lab Results 05/08/25 Range/Units 20:20 WBC 3.3 L (4.8-10.8) X10*3/uL RBC 4.39 (4.20-5.50) X10*6/uL Hgb 12.6 (12.0-16.0) g/dl Hct 36.1 L (37.0-47.0) % MCV 82.2 (80.0-98.0) fL MCH 28.7 (27.0-33.0) pg MCHC 34.9 (31.0-35.0) g/dl RDW 13.2 (11.0-16.0) % Plt Count 244 (160-400) X10*3/uL MPV 9.1 L (9.4-12.3) fL Immature Gran % (Auto) 0.0 (0.0-0.4) % Neut % (Auto) 50.2 (45-73) % Lymph % (Auto) 32.1 (20-40) % Bucks % (Auto) 16.2 H (2-11) % Eos % (Auto) 0.9 (0-4) % Baso % (Auto) 0.6 (0-2) % Lymph # (Auto) 1.1 L (1.2-4.9) X10*3/uL Bucks # (Auto) 0.5 (0.1-1.2) X10*3/uL Eos # (Auto) 0.0 (0.0-0.4) X10*3/uL Baso # (Auto) 0.0 (0.0-0.2) X10*3/uL Abs Immat Gran (auto) 0.00 (0.00-0.03) X10*3/uL Absolute Neuts (auto) 1.7 L (2.0-8.3) x10*3/uL Absolute Nucleated RBC 0.000 (0.0-0.012) X10*3/uL Nucleated RBC % (auto) 0.0 (0.0-0.2) /100WBC Sodium 134 L (135-145) mmol/L Potassium 3.4 (3.3-5.1) mmol/L Chloride 98 (96-108) mmol/L Carbon Dioxide 26 (22-29) mmol/L Anion Gap 13 (12-20) BUN 10 (9-16) mg/dL Creatinine 0.75 (0.5-1.4) mg/dL Estim Creat Clear Calc 90.6 Estimated GFR > 60 Random Glucose 80 (60-115) mg/dL Calcium 8.8 (8.4-10.2) mg/dL Troponin I High Sens < 2.7 (<3.5-17.0) ng/L Influenza Type A (PCR) NEGATIVE (Negative) Influenza Type B (PCR) NEGATIVE (Negative) RSV RNA Qual (PCR) NEGATIVE (Negative) SARS-CoV-2 RNA (RT-PCR) NEGATIVE (Negative) Discharge Plan Discharge Clinical Impression: Bronchitis Patient Disposition: Home, Self-Care Instructions: Acute Bronchitis (ED) Additional Instructions: Stop smoking Take antibiotics prednisone and inhaler as prescribed Follow the PCP if not better Prescriptions: New prednisone 20 mg tablet 40 mg PO DAILY Qty: 10 0RF albuterol sulfate 90 mcg/actuation HFA aerosol inhaler 2 puff inhalation Q6H PRN (Reason: shortness of breath or wheezing) Qty: 8.5 0RF azithromycin [Zithromax] 250 mg tablet 250 mg PO DAILY 4 Days Qty: 4 0RF Rx Instructions: start on day 2 of therapy benzonatate 200 mg capsule 200 mg PO TID PRN (Reason: cough) Qty: 20 0RF No Action naproxen [Naprosyn] 500 mg tablet 500 mg PO BID 5 Days Qty: 10 0RF Interventions: ED Discharge Assessment Last Done: 05/08/25 21:55 Discharge Date/Time: 05/08/25 21:56 Print Language: Kyrgyz
[2025-05-08 20:08] VITALS: BP 125/79; PULSE 83; RESP 18; TEMP 37.9; O2SAT 93; BMI 22.3
[2025-05-08] MEDS: Acetaminophen 325 MG TABLET PO (20:16)
[2025-05-08 20:25] LABS: MANUAL DIFF FLAG NO
[2025-05-08 20:26] LABS: Basophils Percent Auto 0.6 % (0-2); Eosinophils Percent Auto 0.9 % (0-4); Hematocrit 36.1 % (37.0-47.0); Hemoglobin 12.6 g/dl (12.0-16.0); Lymphocytes Absolute Auto 1.1 X10*3/uL (1.2-4.9); Lymphocytes Percent Auto 32.1 % (20-40); Mean Corpuscular HGB Conc 34.9 g/dl (31.0-35.0); Mean Corpuscular Hemoglobin 28.7 pg (27.0-33.0); Mean Corpuscular Volume 82.2 fL (80.0-98.0); Mean Platelet Volume 9.1 fL (9.4-12.3); Monocytes Absolute Auto 0.5 X10*3/uL (0.1-1.2); Monocytes Percent Auto 16.2 % (2-11); Neutrophils Absolute Auto 1.7 x10*3/uL (2.0-8.3); Neutrophils Percent Auto 50.2 % (45-73); Platelet Count 244 X10*3/uL (160-400); Red Blood Count 4.39 X10*6/uL (4.20-5.50); Red Cell Distribution Width 13.2 % (11.0-16.0); White Blood Count 3.3 X10*3/uL (4.8-10.8)
[2025-05-08 20:58] LABS: Anion Gap 13 (12-20); Blood Urea Nitrogen 10 mg/dL (9-16); Calcium 8.8 mg/dL (8.4-10.2); Carbon Dioxide 26 mmol/L (22-29); Chloride 98 mmol/L (96-108); Creatinine Clr Calc Pharmacy 90.6; Estimated Glomerular Filt Rate > 60; Glucose Random 80 mg/dL (60-115); Potassium 3.4 mmol/L (3.3-5.1); Sodium 134 mmol/L (135-145)
[2025-05-08 21:07] VITALS: BP 109/65; PULSE 77; RESP 18; TEMP 37.7; O2SAT 100
[2025-05-08 21:15] LABS: Troponin-I High Sensitivity < 2.7 ng/L (<3.5-17.0)
[2025-05-08 21:28] LABS: Influenza A PCR NEGATIVE (Negative); Influenza B PCR NEGATIVE (Negative); Resp Syncy Virus RNA Qual PCR NEGATIVE (Negative); SARS COV2 PCR INHOUSE NEGATIVE (Negative)
[2025-05-08] MEDS: predniSONE 20 MG TABLET 40 MG PO (21:53)
[2025-05-08] MEDS: Albuterol Sulfate 90 MCG 8 GM INHALER 2 PUFF INHALE (21:53)
[2025-05-08] MEDS: Azithromycin 500 MG TABLET PO (21:53)
[2025-05-08 21:55] VITALS: BP 109/65; PULSE 77; RESP 18; TEMP 37.7; O2SAT 100
== END 2025-05-08 21:56 | disposition home or self-care (01) ==
PROVIDERS: Nurse Practitioner Family; Emergency Provider Internal Medicine; PCP Internal Medicine
DX: J40 Bronchitis, not specified as acute or chronic (principal); R07.9 Chest pain, unspecified; R50.9 Fever, unspecified; R06.02 Shortness of breath; R05.9 Cough, unspecified; F17.210 Nicotine dependence, cigarettes, uncomplicated; Z03.818 Encounter for observation for suspected exposure to other biological agents ruled out
CPT/HCPCS: 0241U; 36415; 71046; 80048; 84484; 85025; 93005; 99284

== ENCOUNTER → 2025-05-08 19:50 | Outpatient (BNV) | payer OTHER, SELFPAY | PROVIDERS: Emergency Provider Internal Medicine; PCP Internal Medicine; Visit Provider Internal Medicine Cardiovascular Disease | DX: R07.9 Chest pain, unspecified (principal) | CPT/HCPCS: 93010 ==

== ENCOUNTER → 2025-05-08 20:10 | Outpatient (BNV) | payer OTHER, SELFPAY | PROVIDERS: PCP Internal Medicine; Visit Provider Radiology Diagnostic Radiology | DX: R07.9 Chest pain, unspecified (principal) | CPT/HCPCS: 71046 ==

== ENCOUNTER 2025-05-13 11:34 | Emergency (ER) | payer OTHER, SELFPAY ==
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
[2025-05-13 11:45] VITALS: BP 107/48; PULSE 66; RESP 20; TEMP 36.7; O2SAT 96; BMI 21.6
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
--- NOTE | 2025-05-13 11:55 | MHC.EDTECH ---
pt ambulated to bathroom independently to change into hospital gown
[2025-05-13] MEDS: diazePAM 2 MG TABLET 4 MG PO (12:16)
[2025-05-13] MEDS: Acetaminophen 325 MG TABLET 975 MG PO (12:17)
[2025-05-13] MEDS: dexAMETHasone 2 MG TABLET 10 MG PO (13:05)
[2025-05-13] MEDS: Ketorolac Tromethamine 15 MG/ML VIAL IM (13:08)
[2025-05-13 13:17] VITALS: BP 107/48; PULSE 66; RESP 20; TEMP 36.7; O2SAT 96
== END 2025-05-13 13:18 | disposition home or self-care (01) ==
PROVIDERS: Emergency Provider Emergency Medicine; PCP Internal Medicine
DX: S20.219A Contusion of unspecified front wall of thorax, initial encounter (principal); R06.02 Shortness of breath; M54.50 Low back pain, unspecified; M79.602 Pain in left arm; M79.601 Pain in right arm; M79.605 Pain in left leg; M79.604 Pain in right leg; F17.210 Nicotine dependence, cigarettes, uncomplicated; V43.52XA Car driver injured in collision with other type car in traffic accident, initial encounter; Y93.9 Activity, unspecified; Y92.410 Unspecified street and highway as the place of occurrence of the external cause; Y99.8 Other external cause status
CPT/HCPCS: 70450; 71046; 72125; 96372; 99284; J1885; J8540

== ENCOUNTER → 2025-05-13 11:52 | Outpatient (BNV) | payer OTHER, SELFPAY | PROVIDERS: Emergency Provider Emergency Medicine; PCP Internal Medicine; Visit Provider Radiology Diagnostic Radiology | DX: M54.9 Dorsalgia, unspecified (principal); M54.2 Cervicalgia; S09.90XA Unspecified injury of head, initial encounter | CPT/HCPCS: 70450; 71046; 72125 ==

== ENCOUNTER 2025-08-09 23:58 | Emergency (ER) | payer OTHER, SELFPAY ==
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
[2025-08-10] VITALS: BP 123/70; PULSE 69; RESP 18; TEMP 36.4; O2SAT 100; BMI 24.2
[2025-08-10 00:20] VITALS: BP 123/70; PULSE 69; RESP 18; TEMP 36.4; O2SAT 100
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
[2025-08-10] MEDS: Lactated Ringers 1,000 ML 999 ML IV (01:13)
[2025-08-10] MEDS: diazePAM 10 MG/2 ML CARTRIDGE 5 MG IVPUSH (01:14)
[2025-08-10 01:49] LABS: UPreg QC Valid YES
[2025-08-10] MEDS: iohexoL 350 MG/ML 100 ML INFUS..BTL 75 ML IV (02:17)
[2025-08-10 04:26] VITALS: BP 123/70; PULSE 69; RESP 18; TEMP 36.4; O2SAT 100
== END 2025-08-10 04:27 | disposition home or self-care (01) ==
PROVIDERS: Emergency Provider Emergency Medicine; PCP Internal Medicine
DX: G43.909 Migraine, unspecified, not intractable, without status migrainosus (principal); M54.12 Radiculopathy, cervical region; M54.50 Low back pain, unspecified; R11.0 Nausea; M54.2 Cervicalgia; M62.81 Muscle weakness (generalized); F17.210 Nicotine dependence, cigarettes, uncomplicated
CPT/HCPCS: 70496; 70498; 81025; 96361; 96374; 96375; 99285; J1885; J3360; J7120; Q9967

== ENCOUNTER → 2025-08-10 00:52 | Outpatient (BNV) | payer OTHER, SELFPAY | PROVIDERS: Emergency Provider Emergency Medicine; PCP Internal Medicine; Visit Provider Student in an Organized Health Care Education/Training Program | DX: R51.9 Headache, unspecified (principal); M54.2 Cervicalgia | CPT/HCPCS: 70496; 70498 ==

== ENCOUNTER 2025-09-24 20:26 | Emergency (ER) | payer MEDICAID, SELFPAY ==
[2025-09-24 20:39] VITALS: BP 115/56; PULSE 87; RESP 16; TEMP 36.7; O2SAT 98; BMI 24.1
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
--- NOTE | 2025-09-24 20:42 | ECG_ITS ---
Test Reason : Ue tingling Blood Pressure : */* mmHG Vent. Rate : 86 BPM Atrial Rate : 86 BPM P-R Int : 112 ms QRS Dur : 70 ms QT Int : 342 ms P-R-T Axes : 17 69 44 degrees QTcB Int : 409 ms Normal sinus rhythm Minimal voltage criteria for LVH, may be normal variant ( Sokolow-Zheng ) Borderline ECG When compared with ECG of 08-May-2025 19:50, T wave amplitude has increased in Anterior leads Referred By: Sandhya Eaton Electronically Signed By: JAYCEE CARRERA
[2025-09-25 00:10] VITALS: BP 90/67; PULSE 65; RESP 16; O2SAT 97
[2025-09-25 00:19] VITALS: BP 90/67; PULSE 65; RESP 16; TEMP -17.7; TEMP 0; O2SAT 97
== END 2025-09-25 00:19 | disposition home or self-care (01) ==
PROVIDERS: Emergency Provider Student in an Organized Health Care Education/Training Program; PCP Internal Medicine
DX: S29.012A Strain of muscle and tendon of back wall of thorax, initial encounter (principal); R20.0 Anesthesia of skin; X58.XXXA Exposure to other specified factors, initial encounter; Y93.9 Activity, unspecified; Y92.9 Unspecified place or not applicable
CPT/HCPCS: 93005; 99283; 99284

== ENCOUNTER → 2025-09-24 20:42 | Outpatient (BNV) | payer MEDICAID, SELFPAY | PROVIDERS: Emergency Provider Student in an Organized Health Care Education/Training Program; PCP Internal Medicine; Visit Provider Internal Medicine | DX: R20.2 Paresthesia of skin (principal) | CPT/HCPCS: 93010 ==